=== PATIENT | male | born 1960 | race Caucasian/White ===

== ENCOUNTER → 2024-03-08 23:59 | Outpatient (BNV) | payer MEDICARE, SELFPAY | PROVIDERS: PCP Internal Medicine; Visit Provider Internal Medicine Cardiovascular Disease | DX: I21.11 ST elevation (STEMI) myocardial infarction involving right coronary artery (principal) | CPT/HCPCS: 92941; 92978; 93458; 99152 ==

== ENCOUNTER 2024-03-25 13:42 | Outpatient (AMB) | payer MEDICARE, SELFPAY ==
--- NOTE | 2024-03-25 13:44 | A.OFFVIS_ITS ---
Vital Signs 03/25/24 13:45 Height 5 ft 10 in Weight 180 lb 12.465 oz BMI 25.9 BP 124/62 Blood Pressure Location Lt brachial Position Sitting Pulse 60 Pulse Source Monitor Intake Visit Reasons: [employer]/ s/p Cardiac Cath Intake Note: [employer]/s/p Cath Room Clerk Required: No Accompanied by: Spouse Allergies aspirin [ASPIRIN] Allergy (Intermediate, Unverified 03/22/24 15:07) HIVES Medication List - Last Reconciled 03/25/24 by Houston Whitaker MD aspirin (Adult Low Dose Aspirin) 81 mg PO DAILY atorvastatin 80 mg PO BEDTIME clopidogrel 75 mg PO DAILY lisinopril 10 mg PO DAILY metoprolol succinate ER 25 mg PO DAILY tamsulosin 0.4 mg PO DAILY HPI Comments Details: [age] year gentleman who presented to [facility] in early March with chest pain and had VFib arrest. His EKGs showed inferior STEMI. He was shocked 2 times in the emergency department and then brought into the cardiac concrete laborer. In the concrete laborer on the table he had VFib arrest again. He was shocked but this time he did not regain consciousness and was intubated. He underwent cardiac catheterization which showed occluded proximal right coronary artery which was treated with drug-eluting stent. He had aspirin allergy and was treated initially with cangrelor IV and underwent aspirin desensitization in the cardiac care unit and since then has been on aspirin and Plavix. He had a good recovery and is here for clinic visit with us. He is denying any chest pain or shortness of breath. Overall has been doing well. No bleeding concerns. Blood pressure is well controlled. He is currently taking aspirin and Plavix. He is on lisinopril metoprolol and blood pressure is well controlled. He is starting cardiac rehabilitation coming Monday. [facility], [facility] Surgical History (Updated 03/25/24 @ 13:53 by Rocio Nichols CMA) Hx of cardiac cath Family History Mother Heart attack Father No problems noted. Social History (Updated 03/25/24 @ 13:55 by Rocio Nichols CMA) Alcohol intake: never Patient Tobacco Use Status: Never used Tobacco Review of Systems Const Denies chills, Denies fatigue, Denies fever(s), Denies frequent falls, Denies weakness, Denies weight gain and Denies weight loss ENT Denies dizziness Card Denies chest pain, Denies leg edema, Denies lightheadedness, Denies palpitations, Denies dyspnea, Denies dyspnea on exertion and Denies orthopnea Resp Denies cough, Denies dyspnea and Denies dyspnea on exertion GI Denies bloating and Denies change in bowel habits Musc Denies muscle weakness, Denies numbness and Denies tingling Neuro Denies dizziness, Denies frequent falls, Denies numbness, Denies tingling and Denies weakness Endo Denies fatigue and Denies palpitations Physical Exam Vital Signs: Last Vital Signs Pulse 60 03/25/24 13:45 BP 124/62 03/25/24 13:45 BMI result Body Mass Index 25.9 GENERAL APPEARANCE: in no acute distress, pleasant. NECK: no carotid bruit, no jugular venous distention. SKIN: no suspicious lesions, warm and dry. HEART: no murmurs, regular rate and rhythm. LUNGS: clear to auscultation bilaterally. ABDOMEN: soft, nontender. EXTREMITIES: no edema. PERIPHERAL PULSES: equal. NEUROLOGIC: No gross deficits, AAO X 3 Office Procedures EKG Details: Sinus rhythm 60 beats per minute, normal axis, inferior infarct with evolving changes (recent STEMI), QTC 396 milliseconds. [id number], Complete Assessment & Plan Assessment & Plan (1) ACS (acute coronary syndrome): Code(s): I24.9 - Acute ischemic heart disease, unspecified Category: Medical Plan [age] year gentleman with 1st office visit. He presented with VFib arrest and inferior ST-elevation WI and underwent primary PCI at [facility] early 03/2024. He has made a good recovery at this stage. Clinically stable. EKGs showing evolution of inferior wall WI. he is taking aspirin and Plavix at this stage. He has aspirin allergy with hives in the past and he is post desensitization. I have advised him that he should not miss aspirin again because it may lead to repeating a desensitization process. 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 He is saying that he may need biopsy of nodules. I have explained to him that he presented with acute heart attack and currently dual antiplatelet therapy can not be stopped. We will continue to monitor and whenever this plan comes up we will have a discussion about interaction of anti platelets. Aspirin obviously will not be stopped because he had desensitization performed and stopping aspirin will lead to repeat desensitization. Thank you for allowing me to participate in the care of your patient. Please feel free to contact me if you have any questions. Orders: Orders Lipid Panel Today I24.9 - Acute ischemic heart disease, unspecified Coding Level of Care Code New Pt Level 4 (32215) Diagnoses ACS (acute coronary syndrome) I24.9 CPT Codes EKG - CPT: 47096-[id number], Complete ([id number])
[2024-03-25 13:45] VITALS: BP 124/62; PULSE 60; BMI 25.9
== END 2024-03-25 14:29 | disposition home or self-care (01) ==
PROVIDERS: PCP Internal Medicine; Visit Provider Internal Medicine Cardiovascular Disease
DX: I24.9 Acute ischemic heart disease, unspecified (principal)
CPT/HCPCS: 93010; 99214

== ENCOUNTER → 2024-03-25 13:42 | Outpatient (BNVA) | payer MEDICARE, SELFPAY | PROVIDERS: PCP Internal Medicine; Visit Provider Internal Medicine Cardiovascular Disease | DX: I24.9 Acute ischemic heart disease, unspecified (principal); R94.31 Abnormal electrocardiogram [ECG] [EKG] | CPT/HCPCS: 93005; 99212 ==

== ENCOUNTER 2024-05-02 14:09 | Outpatient (REF) | payer MEDICARE, SELFPAY ==
--- OUTSIDE RECORDS SUMMARY | 2024-05-02 14:13 | XMS_ITS | Continuity of Care Document ---
Author Organization [facility] Address [address] [place] [address]- Care Team Providers Care System Developer Associate Manager Name Role Phone Gerard Ren MD Primary Care Physician Encounter [facility] NBR [id number] Date(s): 04/07/24 - 04/07/[address] [address]- Discharge Disposition: A-D/C Home Attending Physician: Isaiah Ramires MD Admitting Physician: Isaiah Ramires MD Referring Physician: Not on Staff, Referring MD Encounter Type: Disch ES Allergies, Adverse Reactions, Alerts Substance Criticality Severity Reaction Reaction Severity Status aspirin 1 Resolved Benadryl, Topical Aspirin no t indicated Active 1Patient underwent aspirin desensitization on 03/08/24 Immunizations Given and Recorded Vaccine Date Status Refusal Reason influenza virus vaccine, inactivated 03/10/24 Give n Medications aspirin 81 mg oral delayed release tablet 81 mg, By Mouth, Daily, # 30 tablet, Refills 3, Tot. Refills 3, Maintenance, 03/11/24 1:25:00 PM EST, Route to Pharmacy Electronically, [id number], Partial fill upon patient request if the prescription is for a schedule II opioid drug., 178, cm, 03/11/24 7:27:00 EST, Height, 84, kg, 03/09/24 14:31:00 EDT, Dry Weight Start Date: 03/11/24 Status: Ordered Quantity: 30.0 Unit: tablet Repeat number: 4 atorvastatin 80 mg oral tablet = 80 mg, By Mouth, Daily at bedtime, # 30 tablet, 3 Refills, Maintenance, 03/11/24 1:25:00 PM EST, Tablet, [facility], Partial fill upon patient request if the prescription is for a schedule II opioid drug., 178, cm, 03/11/24 7:27:00 EST, Height, 84, kg, 03/09/24 14:31:00 EDT, Dry Weight Start Date: 03/11/24 Status: Ordered Quantity: 30.0 Unit: tablet Repeat number: 4 CoQ10 By Mouth, Daily, 0 Refills, Maintenance, 09/17/22 6:44:00 AM EDT, Partial fill upon patient request if the prescription is for a schedule II opioid drug. Start Date: 09/17/22 Status: Ordered Repeat number: 1 Flomax 0.4 mg oral capsule 0.4 mg, 1, capsule, By Mouth, Daily, Refills 0, Maintenance, 07/29/22 10:29:00 AM EDT, Partial fill upon patient request if the prescription is for a schedule II opioid drug. Start Date: 07/29/22 Status: Ordered Repeat number: 1 lisinopril 10 mg oral tablet 10 mg, By Mouth, Daily, Refills 0, Maintenance, 03/11/24 12:42:00 PM EST, Partial fill upon patient request if the prescription is for a schedule II opioid drug. Start Date: 03/11/24 Status: Ordered Repeat number: 1 metoprolol 25 mg oral tablet, extended release 25 mg, 1, tablet, By Mouth, Daily, # 90 tablet, Refills 0, Tot. Refills 0, Maintenance, 03/11/24 1:25:00 PM EST, Route to Pharmacy Electronically, [id number], Partial fill upon patient request if the prescription is for a schedule II opioid drug., 178, cm, 03/11/24 7:27:00 EST, Height, 84, kg, 03/09/24 14:31:00 EDT, Dry Weight Start Date: 03/11/24 Status: Ordered Quantity: 90.0 Unit: tablet Repeat number: 1 Plavix 75 mg oral tablet 75 mg, By Mouth, Daily, # 30 tablet, Refills 3, Tot. Refills 3, Maintenance, 03/11/24 1:25:00 PM EST, Route to Pharmacy Electronically, [facility], Partial fill upon patient request if the prescription is for a schedule II opioid drug., 178, cm, 03/11/24 7:27:00 EST, Height, 84, kg, 03/09/24 14:31:00 EDT, Dry Weight Start Date: 03/11/24 Status: Ordered Quantity: 30.0 Unit: tablet Repeat number: 4 Vital Signs Most recent to oldest [Reference Range]: 1 2 Height 179 cm (04/07/24 5:10 PM) 179 cm (04/07/24 3:08 PM) Weight 82.7 kg (04/07/24 5:10 PM) 82.7 kg (04/07/24 3:08 PM) Oxygen Saturation [94-100 %] 98 % (04/07/24 5:10 PM) 100 % (04/07/24 3:08 PM) Pulse Rate [55-90 bpm] 62 bpm (04/07/24 5:10 PM) 57 bpm (04/07/24 3:08 PM) Blood Pressure [90-138/55-84 mm Hg] 118/ 68mm Hg (04/07/24 5:10 PM) 126/89mm Hg (04/07/24 3:08 PM) Respiratory Rate [16-30 br/min] 18 br/mi n (04/07/24 5:10 PM) 16 br/min (04/07/24 3:08 PM) Temperature [96.8-100.4 DegF] 97.8 DegF (04/07/24 3:08 PM) Mode of Delivery (Oxygen) Room air (04/07/24 5:10 PM) Room air (04/07/24 3:08 PM) Blood pressure sites Arm, right (04/07/24 5:10 PM) Arm, left (04/07/24 3:08 PM) Temperature Route Temporal (04/07/24 3:08 PM) Dry Weight 82.7 kg (04/07/24 5:10 PM) 82.7 kg (04/07/24 3:08 PM) Weight Obtained Via Standing scale (04/07/24 3:08 PM) Dry Weight Obtained Via Standing scale (04/07/24 3:08 PM) Social History Social History Type Response Smoking Status Never (less than 100 in lifetime) entered on: 03/08/24 Sex Sex Representation Male (finding) Implantable Device List Procedure Provider Procedure Date Device Type Site Repair Hernia Inguinal Lapar oscopic Bila Nirav Fleming MD 10/05/22 Unknown Groin Device Identifier Serial Number Lot or Batch Number Manufacturing Date Expiration Date Distinct Identification Code MRI Safety Implantable Status Assigning Authority Unknown Unknown [id number] Unknown 03/04/27 Unknown Unknown Active Unknown Unknown Unknown [id number] Unknown 03/04/27 Unknown Unknown Active Unknown Note * Isaiah Ramires MD: PERFORM, SIGN, VERIFY Event Display: Patient Education Handout Authored Date: * Isaiah Ramires MD: PERFORM Event Display: Patient Education Leaflets Authored Date: Hematoma ?? [id number] Hematoma A hematoma is a collection of blood trapped outside of a blood vessel. It's what we think of as a bruise or a contusion. It's often seen under the skin as a black and blue spot on your arm or leg, ora bump on your head after an injury. It can be almost anywhere on or in your body. It can also occur in an internal organ. This can be more serious. A hematoma is caused by an injury with damage to small blood vessels. This causes blood to leak into the tissues. Blood forms a pocket under the skin that swells and looks like a purplish patch. Hematomas sometimes form under the skin from bleeding during childbirth and can be particularly serious.Another serious form of hematoma forms after a fall on the head, called a subdural hematoma. Gradually the blood in the hematoma is absorbed back into the body. The swelling and pain of the hematoma will go away. This takes from??1 to??4 weeks, depending on the size of the hematoma. The skinover the hematoma may turn bluish then brown and yellow as the blood is dissolved and absorbed. Usually, this only takes a couple of weeks but can last months. Home care ??? Limit motion of the joints near the hematoma. If the hematoma is large and painful, avoid sports and other vigorous physical activity until the swelling and pain goes away. ??? Apply anice pack over the injured area for 20 minutes every 1 to 2 hours the first day. Continue with ice packs 3 to 4 times a day for the next??2 days. To make an ice pack, put ice cubes in a plastic bag that seals at the top. Wrap the bag in a thin towel or cloth. Don???t put ice or an ice pack directly on the skin. Continue the use of ice packs to ease pain and swelling as needed. ??? Take acetaminophen for pain relief, unless you were given a different pain medicine to use.??Talk with your providerbefore using this medicine if you: o Have chronic liver or kidney disease o Have??had a stomach ulcer or??digestive tract??bleeding o Are taking blood-thinner medicines. ?? Follow-up care Follow up with your??healthcare provider,??or as advised.??If X-rays or a CT scan were done, you'llbe told if there is a change in the reading, especially if it affects treatment. ?? When to get medical advice Call your healthcare provider right away if any of the following occur: ??? Redness around the hematoma ??? Increase in pain or warmth in the hematoma ??? Increase in size of the hematoma ??? Fever of 100.4??F (38??C) or higher, or as directed by your provider ??? If the hematoma is on the arm or leg, watch for: o More swelling or pain in the extremity o Numbness or tingling or blue color of the hand or foot ?? Last Reviewed Date: 2021 ?? [id number] The [employer]. All rights reserved. This information is not intended as a substitute for professional medical care. Always follow your healthcare professional's instructions. ?? Patient Care team information Care Team Personnel Name: Sridevi Aguilar RN Position: [facility] RN Member Role: Primary Care Nurse Name: Jewel Hogan RN Position: S RN Member Role: Primary Care Nurse Name: Gerard Ren MD Position: [facility] Outreach Member Role: PCP Address: [address] [place] [id number] Telecom: Care Team Related Persons Name: TERE MORATAYA Name: JACKSON MORENO Insurance Providers Guarantor name: GAVINO WASHINGTON Health Plan Information #: 1 Payer: MEDICARE PART B OUTPT Member Number: [id number] Policy Number: NA Group Number: NA Health Plan Information #: 2 Payer: MEDICARE PART B OUTPT Member Number: [id number] Policy Number: NA Group Number: NA
[2024-05-02 16:15] LABS: Cholesterol 121 mg/dL (<200); HDL Cholesterol 44 mg/dL (>40); LDL Cholesterol Calculated 59 mg/dL (<100); Triglycerides 91 mg/dL (<150)
== END 2024-05-02 14:10 | disposition home or self-care (01) ==
LOC: HO.LAB 14:09
PROVIDERS: PCP Internal Medicine; Visit Provider Internal Medicine Cardiovascular Disease
DX: I24.9 Acute ischemic heart disease, unspecified (principal)
CPT/HCPCS: 36415; 80061

== ENCOUNTER 2024-06-25 13:56 | Outpatient (AMB) | payer MEDICARE, SELFPAY ==
[2024-06-25 14:02] VITALS: BP 132/70; PULSE 62; BMI 26.8
--- NOTE | 2024-06-25 14:02 | MHC.OFFVIS ---
Vital Signs 06/25/24 14:02 Height 5 ft 10 in Weight 186 lb 8.177 oz BMI 26.8 BP 132/70 Blood Pressure Location Lt brachial Position Sitting Pulse 62 Pulse Source Pulse Oximeter Intake Visit Reasons: 3mth f/up Dba Required: No Accompanied by: Self / Same As Patient Allergies aspirin [ASPIRIN] Allergy (Intermediate, Unverified 03/22/24 15:07) HIVES Medication List - Last Reconciled 06/25/24 by George Blevins NP aspirin (Adult Low Dose Aspirin) 81 mg PO DAILY 90 days atorvastatin 80 mg PO BEDTIME 90 days blood pressure monitor (Blood Pressure Kit) As directed clopidogrel 75 mg PO DAILY 90 days lisinopril 10 mg PO DAILY 90 days metoprolol succinate ER 25 mg PO DAILY 90 days tamsulosin 0.4 mg PO DAILY 90 days HPI Comments Details: This is a 63-year-old male patient presenting for a follow-up visit. He has a history of VFib arrest and STEMI in March, during which he was shocked twice in the emergency room and subsequently underwent cardiac catheterization. During the procedure, the patient had another VFib arrest. The catheterization revealed 100% occlusion of the proximal RCA, which was treated with a drug eluting stent. Today, the patient reports feeling overall well and denies any exertional chest pain, shortness of breath, palpitations, dizziness, fatigue, orthopnea, PND, leg edema, presyncope, or syncope. He states that he has been compliant with his prescribed medications. However, he reports discontinuing cardiac rehabilitation due to a negative experience with the staff the. He states that he has continued to engage in regular exercise at a local senior center. [facility] Surgical History (Updated 06/25/24 @ 14:08 by Josephine Kwan CMA) Hernia Hx of cardiac cath Family History Mother Heart attack Father No problems noted. Social History Alcohol intake: never Patient Tobacco Use Status: Never used Tobacco Review of Systems Const Denies chills, Denies fatigue, Denies fever(s), Denies weight gain and Denies weight loss ENT Denies dizziness Card Denies chest pain, Denies leg edema, Denies lightheadedness, Denies palpitations, Denies dyspnea on exertion, Denies orthopnea and Denies other Resp Denies cough and Denies dyspnea on exertion GI Denies hematochezia and Denies change in stool character Musc Denies abnormal gait, Denies muscle weakness, Denies numbness, Denies radiating pain into limb and Denies tingling Neuro Denies abnormal gait, Denies dizziness, Denies numbness and Denies tingling Endo Denies fatigue and Denies palpitations Physical Exam Vital Signs: Last Vital Signs Pulse 62 06/25/24 14:02 BP 132/70 06/25/24 14:02 BMI result Body Mass Index 26.8 Const General: cooperative, healthy appearing, comfortable and no acute distress Orientation/consciousness: patient oriented x3 HEENT Head: Yes normal to inspection Neck Neck: Yes normal visual inspection, Yes trachea midline and Yes supple Chest Chest palpation & inspection: normal inspection of the chest Resp Effort & Inspection: normal respiratory effort Auscultation: clear to auscultation bilaterally, no crackles, no rales, no rhonchi and no wheezes Cardio Jugular venous distension: no JVD Palpation: normal PMI Rate: regular rate Rhythm: regular rhythm Heart sounds: S1 normal heart sound present, S2 normal heart sound present, no click, no gallops, no murmurs and no rubs Peripheral pulses: Peripheral pulses 2+ throughout GI Inspection: Yes normal to inspection Palpation (GI): Soft to palpation Auscultation: normal bowel sounds Skin General skin exam: no rashes or lesions noted Neuro General: patient oriented x3 Extrem General: Yes normal to inspection, No no pedal edema and No calf tenderness Psych Appearance: grossly normal Mental Status: mental status grossly normal Speech and movement: Normal speech and movement present Assessment & Plan Assessment & Plan (1) ACS (acute coronary syndrome): Code(s): I24.9 - Acute ischemic heart disease, unspecified Category: Medical Plan: Continue with the current regimen of dual antiplatelet therapy with aspirin and Plavix. Emphasized the importance of not missing the aspirin dose, particularly due to his prior desensitization procedure. Continue high-dose statin therapy, most recent LDL was 59. Goal is to maintain LDL less than 70. The patient reports that in the past someone had told him about calcified valves and dilated ascending aorta. To assess for any valvular or wall motion abnormalities, we will get an echocardiogram. Advised patient to continue with heart healthy diet, regular physical activity, and consistent medication adherence. Follow-up in 6 months. In the interim, patient will contact the office with any concerns or changes in symptoms. This note was generated using voice recognition software. While every effort has been made to ensure accuracy and proper precision instrument maker and repairer, there may be occasional errors that could affect the content or meaning of the described symptoms. Orders: Orders CA echo transthoracic complete 4 Months I24.9 - Acute ischemic heart disease, unspecified Coding Level of Care Code Est Pt Level 4 (45962) Diagnoses ACS (acute coronary syndrome) I24.9 Time Spent (min) 31 Comment Time spent in reviewing the chart, test results, assessment, counseling and documentation.
--- OUTSIDE RECORDS SUMMARY | 2024-06-25 14:58 | XMS_ITS | Continuity of Care Document ---
Author Organization [facility] ter Address [address] [place] [address]- Care Team Providers Care Fisher Sponge Hooking Name Role Phone Gerard Ren MD Primary Care Physician Encounter [facility] AC[facility] R [id number] Date(s): 04/01/24 - 06/10/[address] [address]- Encounter Diagnosis ST elevation (STEMI) myocardial infarction of unspecified site(Final) - Atherosclerotic heart disease of [place] coronary artery without angina pectoris (Final) - Presence of coronary angioplasty implant and graft(Final) - Discharge Disposition: A-D/C Home Attending Physician: Kyra Dumont MD Admitting Physician: Kyra Dumont MD Referring Physician: Kyra Dumont MD Encounter Type: Disch Recurring OP Allergies, Adverse Reactions, Alerts Substance Criticality Severity [...] 1:25:00 PM EST, Route to Pharmacy Electronically, [id number], Partial fill upon patient request if the [...] Refills, Maintenance, 03/11/24 1:25:00 PM EST, Tablet, [facility], Partial fill upon patient request [...] 1:25:00 PM EST, Route to Pharmacy Electronically, [facility], Partial fill upon patient request [...] 1:25:00 PM EST, Route to Pharmacy Electronically, [facility], Partial fill upon patient request if the prescription is for a schedule II opioid drug., 178, cm, 03/11/24 7:27:00 EST, Height, 84, kg, 03/09/24 14:31:00 EDT, Dry Weight Start Date: 03/11/24 Status: Ordered Quantity: 30.0 Unit: tablet Repeat number: 4 Social History Social History Type Response Smoking Status Never (less than 100 in lifetime) entered on: 03/08/24 Sex Sex Representation Male (finding) Implantable Device List Procedure Provider Procedure Date Device Type Site Repair Hernia Inguinal Lapar oscopic Esme Fleming MD, Nirav Villalta 10/05/22 Unknown Groin Device Identifier Serial Number Lot or Batch Number Manufacturing Date Expiration Date Distinct Identification Code MRI Safety Implantable Status Assigning Authority Unknown Unknown [id number] Unknown 03/04/27 Unknown Unknown Active Unknown Unknown Unknown [id number] Unknown 03/04/27 Unknown Unknown Active Unknown Note * Event Display: Cardiac Rehab Telemetry Report Authored Date: * Event Display: Cardiac Rehab Telemetry Report Authored Date: * Event Display: Cardiac Rehab Telemetry Report Authored Date: Patient Care team information Care Team Personnel Name: Sridevi Aguilar RN Position: [facility] RN Member Role: Primary Care Nurse Name: Jewel Hogan RN Position: S RN Member Role: Primary Care Nurse Name: Gerard Ren MD Position: [facility] Outreach Member Role: PCP Address: [address] [place] [address] Telecom: Care Team Related Persons Name: KYRA MORATAYA Name: JACKSON MORENO Insurance Providers Guarantor name: GAVINO PADMINI [employer] Plan Information #: 1 Payer: MEDICARE PART B OUTPT Member Number: [id number] Policy Number: NA Group Number: NA Health Plan Information #: 2 Payer: MEDICARE PART B OUTPT Member Number: [id number] Policy Number: NA Group Number: NA
== END 2024-06-25 14:42 | disposition home or self-care (01) ==
PROVIDERS: PCP Internal Medicine
DX: I24.9 Acute ischemic heart disease, unspecified (principal)
CPT/HCPCS: 99214

== ENCOUNTER → 2024-06-25 13:56 | Outpatient (BNVA) | payer MEDICARE, SELFPAY | PROVIDERS: PCP Internal Medicine | DX: I24.9 Acute ischemic heart disease, unspecified (principal) | CPT/HCPCS: 99212 ==

== ENCOUNTER → 2024-10-23 11:02 | Outpatient (REF) | payer MEDICARE, SELFPAY ==
--- NOTE | 2024-10-23 11:04 | CA_ITS ---
Transthoracic Echocardiogram Patient (Last, First, Middle): Jayme Pham, Gender: Male Date of : 1960 Age: 64 Procedure Date: 10/23/2024 Procedure Type: Transthoracic Echocardiogram Location: OP Height: 177.8 cm Weight: 84.37 kg BSA: 2.02 m2 Heart Rate: 54 bpm BP: 132 / 70 mmHg Field Agronomist: KIRBY Referring MD: George Blevins NP Concrete Bucket Hooker: Gold Diehl MD Symptoms: I24.9 - Acute ischemic heart disease, unspecified Study Quality: Adequate ECG Rhythm: Bradycardia Conclusions: - 1. Normal LV ejection fraction of 60 65% with grade 1 diastolic dysfunction with underlying regional wall motion abnormality consistent with coronary artery disease 2. Cardiac valvular with Dopplers within normal limits 3. Mildly dilated ascending aorta 4. Normal RV systolic pressure 5. No pericardial effusion Findings Left Ventricle Normal left ventricular size, thickness, and systolic function. The visually estimated ejection fraction is between 60-65%. Spectral Doppler is indicative of an impaired relaxation filling pattern. E/E prime ratio is <8, consistent with normal filling pressures. Evidence suggests grade I (mild) diastolic dysfunction. Wall Motion Rest Echo Findings The basal inferior and mid inferoseptal segments are hypokinetic. The basal inferoseptal segment is akinetic. All other scored wall segments showed normal motion. Right Ventricle Normal right ventricular cavity size and systolic function. Atria Both atria are normal in size. There is no evidence of interatrial shunt. Aortic Valve Normal aortic valve structure and function. There is no aortic valve stenosis. There is no aortic valve regurgitation. Mitral Valve Normal mitral valve structure and function. There is mild mitral annular calcification. There is trace mitral valve regurgitation. There is no mitral valve stenosis. Pulmonic Valve The pulmonic valve was not well visualized. Tricuspid Valve Likely normal tricuspid valve structure and function. There is trace tricuspid valve regurgitation. The right ventricular systolic pressure is normal. The right ventricular systolic pressure is 18 mmHg. Normal right atrial pressure. There is no evidence of pulmonary hypertension. Great Vessels The pulmonary artery was not well visualized. There is mild dilatation of the ascending aorta measuring 3.80 cm. Small plaque is seen in the sino tubular ridge. Venous The inferior vena cava is normal in size and collapses greater than 50% with inspiration. Pericardium/Pleural There is no evidence of pericardial effusion. Prior Study Comparison No prior study available for comparison. Measurements 2D Linear Measurements IVSd: 0.99 0.6-0.9/0.6-1.0 cm LVIDd: 5.06 3.9-5.3/4.2-5.9 cm LVIDd Index: 2.50 2.4-3.2/2.2-3.1 cm/m2 LVIDs: 3.05 2.0-3.6 cm LVPWd: 0.68 0.7-1.1 cm LA Diam: 3.80 2.7-3.8/3.0-4.0 cm LAIDs Index: 1.88 1.5-2.3 cm/m2 LV Mass: 181.43 67-162/88-224 g LV Mass Index: 89.82 43-95/49-115 g/m2 LVOT Diam: 2.20 3.0+(-)1.3 cm 2D Systolic Function EF 4C: 59.90 >55% EF 2C: 61.00 >55% EF BiP: 61.30 >55% Mitral Valve MV Pk E: 0.73 MV PK A: 0.63 MV Decel Time: 264.00 E/A: 1.20 E'Lateral: 9.90 E'Medial: 5.55 E/E' Med: 13.20 E/E' Lat: 7.40 PHT: 77.00 MVA PHT: 2.86 Decel Harris: 2.78 Aortic Valve AoV Pk Frantz: 1.31 AoV Pk Grad: 7.00 ELIJAH: 3.48 LVOT LVOT Pk Frantz: 1.21 LVOT Mn Frantz: 0.81 LVOT VTI: 0.25 LVOT Pk Grad: 6.00 LVOT Mn Grad: 3.00 LVOT Diam: 2.20 LVOT Area: 3.80 Diastolic Function MV Pk E: 0.73 MV Pk A: 0.63 E/A: 1.20 E'Medial: 5.55 E/E' Med: 13.20 E' Laterial: 9.90 E/E' Lat: 7.40 Right Ventricle TAPSE (mm): 23.90 TVS' Frantz: 12.30 Tricuspid Valve TR Pk Frantz: 1.96 TR Pk Grad: 15.00 RA Press: 3.00 RVSP: 18.00 Great Vessels Aorta Sinus of Valsalva: 3.30 2.0-3.5 cm Ao Asc: 3.80 2.1-3.4 cm Pulmonary Veins Pulm Vein S/D 1.10 Pulmonary Valve PV Pk Frantz: 0.93 Peak PV Grad: 3.00 Updated in Other Vendor System with Status of Final Gold iDehl MD electronically signed on 10/23/2024 1:27:01 PM with status of Final
== END ==
LOC: HO.CARD 11:02
PROVIDERS: PCP Internal Medicine
DX: I24.9 Acute ischemic heart disease, unspecified (principal)
CPT/HCPCS: 93306

== ENCOUNTER → 2024-10-23 11:04 | Outpatient (BNV) | payer MEDICARE, SELFPAY | PROVIDERS: PCP Internal Medicine; Visit Provider Internal Medicine Cardiovascular Disease | DX: I24.9 Acute ischemic heart disease, unspecified (principal) | CPT/HCPCS: 93306 ==

== ENCOUNTER 2024-12-25 13:26 | Outpatient (AMB) | payer MEDICARE, SELFPAY ==
--- NOTE | 2024-12-25 13:39 | MHC.OFFVIS ---
Vital Signs 12/25/24 13:41 Height 5 ft 10 in Weight 178 lb 9.191 oz BMI 25.6 BP 110/64 Blood Pressure Location Lt brachial Position Sitting Pulse 47 L Pulse Source Monitor Intake Visit Reasons: 6m follow up Intake Note: 6 mth f/up Protozoology Teacher Required: No Accompanied by: Spouse Allergies aspirin (ASPIRIN) Allergy (Intermediate, Unverified 03/22/24 15:07) HIVES Medication List - Last Reconciled 12/25/24 by Houston Whitaker MD aspirin (Adult Low Dose Aspirin) 81 mg PO DAILY 90 days atorvastatin 80 mg PO BEDTIME 90 days blood pressure monitor (Blood Pressure Kit) As directed clopidogrel 75 mg PO DAILY 90 days lisinopril 10 mg PO DAILY 90 days metoprolol succinate ER 25 mg PO DAILY tamsulosin 0.4 mg PO DAILY 90 days HPI Comments Details: [age] year gentleman who presented to [facility] in early March with chest pain and had VFib arrest. His EKGs showed inferior STEMI. He was shocked 2 times in the emergency department and then brought into the cardiac labor contract analyst. In the labor contract analyst on the table he had VFib arrest again. He was shocked but this time he did not regain consciousness and was intubated. He underwent cardiac catheterization which showed occluded proximal right coronary artery which was treated with drug-eluting stent. He had aspirin allergy and was treated initially with cangrelor IV and underwent aspirin desensitization in the cardiac care unit and since then has been on aspirin and Plavix. He had a good recovery and is here for clinic visit with us. He is denying any chest pain or shortness of breath. Overall has been doing well. No bleeding concerns. Blood pressure is well controlled. He is currently taking aspirin and Plavix. He is on lisinopril metoprolol and blood pressure is well controlled. 12/25/2024: He is here for follow-up. He is saying that few weeks ago he was working and taking some dirt when he started feeling central pressure-like sensation. He said since then he had few episodes of same sensation mostly after eating and randomly. He continues to exercise and go to cardiac rehabilitation and does not get any significant symptoms there. PFSH Surgical History Hernia Hx of cardiac cath Family History Mother Heart attack Father No problems noted. Social History Alcohol intake: never Patient Tobacco Use Status: Never used Tobacco Review of Systems Const Denies chills, Denies fatigue, Denies fever(s), Denies frequent falls, Denies weakness, Denies weight gain and Denies weight loss ENT Denies dizziness Card Denies chest pain, Denies leg edema, Denies lightheadedness, Denies palpitations, Denies dyspnea and Denies dyspnea on exertion Resp Denies cough, Denies dyspnea and Denies dyspnea on exertion GI Denies hematochezia Musc Denies abnormal gait, Denies muscle weakness, Denies numbness, Denies radiating pain into limb and Denies tingling Neuro Denies abnormal gait, Denies dizziness, Denies frequent falls, Denies numbness, Denies tingling and Denies weakness Endo Denies fatigue and Denies palpitations Physical Exam Vital Signs: Last Vital Signs Pulse 47 L 12/25/24 13:41 BP 110/64 12/25/24 13:41 BMI result Body Mass Index 25.6 GENERAL APPEARANCE: in no acute distress, pleasant. NECK: no carotid bruit, no jugular venous distention. SKIN: no suspicious lesions, warm and dry. HEART: no murmurs, regular rate and rhythm. Bradycardic. LUNGS: clear to auscultation bilaterally. ABDOMEN: soft, nontender. EXTREMITIES: no edema. PERIPHERAL PULSES: equal. NEUROLOGIC: No gross deficits, AAO X 3 Office Procedures EKG Details: Sinus bradycardia 47 beats per minute, otherwise normal EKG, QTC 361 milliseconds. [id number], Complete Assessment & Plan Assessment & Plan (1) Chest pain: Code(s): R07.9 - Chest pain, unspecified Category: Medical Plan Pleasant 64-year-old gentleman who is here for follow-up. 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 At that time he did not ever really significant coronary disease in other blood vessels. He also had dyspnea as the presentation sent did not have any chest discomfort. Recently started having chest discomfort during exercise which was 1 episode and then he had random episodes of chest pressure after eating and without exercise. He continues to be active and has no significant exertional symptoms. Given known history of coronary disease, we discussed about doing an exercise stress test and we will do an exercise MIBI on him. He otherwise clinically stable and we will continue the same medications for now. Thank you for allowing me to participate in the care of your patient. Please feel free to contact me if you have any questions. Orders: Orders CA stress test Today R07.9 - Chest pain, unspecified NM cardiolite stress test Today R07.9 - Chest pain, unspecified Coding Level of Care Code Est Pt Level 4 (17759) Diagnoses Chest pain R07.9 CPT Codes EKG - CPT: 61672-[id number], Complete ([id number])
[2024-12-25 13:41] VITALS: BP 110/64; PULSE 47; BMI 25.6
--- OUTSIDE RECORDS SUMMARY | 2024-12-25 14:21 | XMS_ITS | Encounter Summary ---
Author Organization [facility] Address [address] [place] [address] Phone Care Team Providers Care Aircraft Engine Mechanic Supervisor Name Role Phone Lauriealexander Liza Beatris TRANSITION SPECIALIST Primary Care Provider Merritt Trevino MD Unavailable Gilda Ayoub CHANNEL LIP WETTER Primary Care Provider [phone] Gerard Ren MD Primary Care Provider [phone] Gerard Ren MD Unavailable Encounter Details Date Type Department Care Team (Late st Contact Info) Description 07/11/2022 Procedure Pass [facility], Ct Scan - [address] [address] Social History Tobacco Use Types Packs/Day Years Used Date Smoking Tobacco: Former Cigarettes 1.5 20 0 06/25/1968 - 06/25/1982 Smokeless Tobacco: Never Alcohol Use Standard Drinks/Week Comments No 0 (1 standard drink = 0.6 oz pur e alcohol) Child or Family Care Answer Date Record ed Do you have problems with on e of the following making it difficult for you to work, study, or receive health care? No 02/08/2022 Education Answer Date Recorded Are you interested in help w ith more adult education (for example, completing high school, GED, job training, learning the Ivorian language, technical skills, or developing parenting skills)? No 02/08/2022 Food Answer Date Recorded Within the past 6 months we worried whether our food would run out before we got money to buy more. Never True 02/08/2022 Within the past 6 months the food we bought just didn't last and we didn't have enough money to get more. Never True Residential Stability Answer Date Recor ded What is your housing situation today? I have gisselle donato 02/08/2022 How many times have you move d in the past 12 months? Zero (I did not move) 02/08/2022 Paying for Meds Answer Date Recorded Do you have trouble paying for medicines? No 02/08/2022 Paying Utility Bills Answer Date Record ed Do you have trouble paying your heating or elect ricity bill? No 02/08/2022 Transportation Answer Date Recorded Has the lack of transportati on kept you from medical appointments or from getting medications? No 02/08/2022 Unemployment Answer Date Recorded Are you currently unemployed or working on a part-time or temporary basis, and looking for work? No 02/08/2022 Sex and Gender Information Value Date Recorded Sex Assigned at Male 02/23/2022 7:43 PM EDT Legal Sex Male 9:55 AM EDT Gender Identity Male 02/23/2022 7:43 PM EDT Sexual Orientation Not on file Occupation Industry Job Start Date Job End Date disabled Not on file Not on file Not on file documented as of this encounter Plan of Treatment Upcoming Encounters Date Type Department Care Team (Late st Contact Info) Description 01/01/2025 11:00 AM EDT Office Visit [facility] [address] [place] [address] Gerard Ren MD [address] [place] [address] documented as of this encounter Visit Diagnoses Not on filedocumented in this encounter Additional Health Concerns Assessment Noted Time PHQ-2 Depression Total Score: 0 02/09/20 22 9:04 AM EDT documented as of this encounter Care Teams Aircraft Engine Mechanic Supervisor Relationship Specialty Start Date End Date Liza Colvin CNP [address] [place] [address] [email or web address] PCP - General Internal Medicine 08/07/20 10/23/22 Gilda Ayoub NP [address] [place] [address] [email or web address] PCP - General Family Medicine 10/24/22 07/09/23 Gerard Ren MD [address] [place] [address] PCP - General Internal Medicine 07/10/23 Merritt Trevino MD [address] [place] [address] Insurance Assigned Provider 08/12/23 08/11/24 Gerard Ren MD [address] [place] [id number] Insurance Assigned Provider 08/11/24 11/16/24 documented as of this encounter Additional Source Comments The information contained in this document represents components of the legal health record. It is not the complete legal health record.[facility]
--- OUTSIDE RECORDS SUMMARY | 2024-12-25 14:22 | XMS_ITS | Patient Health Record ---
Author Organization [facility] Address [address] [place] [address] Care Team Providers Care Hand Candle Molder Name Role Phone REJI HIRSCH Primary Care Provider Francisco Posada Jr Unavailable Dale CASTILLO, Divya Unavailable Unavailable Reason For Referral No Information Medications Medication SIG (Take, Route, Frequency, Duration) Notes Start Date End Date Status hydroCHLOROthiazide 12.5 MG 1 tablet in the morning Orally Once a day Active Colyte with Flavor Packs 240 GM As direc andrey Orally Over the specified time. for 1 day(s) 08/18/2016 Active Flomax 0.4 MG 1 capsule Orally Onc e a day Active Immunizations Vaccine Route Administration Date Status Comme nts Influenza Unknown 06/09/2016 Administered Problems Problem Type SNOMED Code ICD Code Onset Dates Problem Status W/U Status Risk Notes Problem 962685503 Colon cancer screening (Z12.11) Active confirmed Problem 819290050 Long-term curren t use of high risk medication other than anticoagulant (Z79.899) Active confirmed Plan Of Treatment Future Test Test Name Order Date COLONOSCOPY 08/18/2016 Insurance Providers Payer Name Payer Address Payer Phone Subscriber Number Group Number Insured Name Patient Relationship to Insured Coverage Start Date Coverage End Date MEDICARE OF [employer] [place] [address] [place] [address] [phone] [id number] GAVINO [place] Self - patient is the insured Medical (General) History Medical History History ICD Code hypertension discectomy/ back 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
== END 2024-12-25 14:40 | disposition home or self-care (01) ==
LOC: HO.HCS 13:27
PROVIDERS: PCP Internal Medicine; Visit Provider Internal Medicine Cardiovascular Disease
DX: R07.9 Chest pain, unspecified (principal)
CPT/HCPCS: 93010; 99214

== ENCOUNTER → 2024-12-25 13:26 | Outpatient (BNVA) | payer MEDICARE, SELFPAY | PROVIDERS: PCP Internal Medicine; Visit Provider Internal Medicine Cardiovascular Disease | DX: R07.9 Chest pain, unspecified (principal); R00.1 Bradycardia, unspecified; Z98.890 Other specified postprocedural states | CPT/HCPCS: 93005; 99212 ==

== ENCOUNTER → 2025-02-24 09:42 | Outpatient (REF) | payer MEDICARE, SELFPAY ==
--- NOTE | ~2025-02-24 | NM_ITS ---
EXERCISE MYOCARDIAL PERFUSION STUDY INDICATION: Chest pain to evaluate for myocardial ischemia TECHNIQUE: The patient was brought in for an exercise perfusion study on 02/24/2025. Patient performed exercise as per Magnus protocol and was injected 30 mCi of sestamibi once target heart rate was achieved. Images were obtained using the SPECT gamma camera interlaced with the gating device. Images were obtained in supine position. Resting perfusion study was performed on 02/25/2025. Patient was administered 30 mCi of sestamibi intravenously at rest. Images were then obtained in supine position. Images obtained without without CT attenuation. Total DLP 60 mGy-cm. Images were processed with the software and compared side to side in short axis, horizontal long axis and vertical long axis views. FINDINGS: Raw images were reviewed The stress perfusion study showed nonattenuated images show mildly reduced uptake in the mid and basal inferior wall of the LV myocardium. Remainder of the LV myocardium is normally perfused. Attenuated corrected images show mildly reduced uptake in the apex of the LV. The gated study shows normal LV systolic function with calculated LVEF of 63%. LV cavity is mildly dilated in size. The gated study shows normal systolic wall thickening and contraction of segments. Resting study shows no change in perfusion pattern compared to stress perfusion study. Gating at rest reveals normal systolic wall motion with ejection fraction at 58%. The findings are consistent with normal myocardial perfusion. NM/NM cardiolite stress test IMPRESSION: 1. Myocardial perfusion imaging study shows normal perfusion. 2. Gated LVEF is 63%. 3. Transient ischemic dilatation not present. EKG revealed negative for ischemia. Electronically signed by: Gold Diehl MD 02/26/2025 04:07 PM EDT
--- NOTE | 2025-02-24 09:48 | CA_ITS ---
Acquisition Time: 2025-02-24 09:51:36 Total Exercise Time: 00:08:10 Test Indications: cp Medications: see h&p Protocol: MUNA Max HR: 137 BPM 88% of Pred: 154 BPM Max BP: 162/74 mmHG Max Work Load: 10.1 METS Exercise stress test with exercise 8mins 10 secs of Muna Protocol, achieving 87% MPHR, without any reported symptoms of CP or SOB, with isolated PVCs, with normotensive response to exercise. Without any EKG changes meeting criteria for ischemia. In recovery, pt continued to feel well. Nuclear images pending. Test reviewed with Dr. Diehl. Referred By: Houston Whitaker Electronically Signed By: George Blevins
--- OUTSIDE RECORDS SUMMARY | 2025-02-24 10:49 | XMS_ITS | Patient Health Record ---
Author Organization [facility] Address [address] [place] [address] Care Team Providers Care Sales And Marketing Engineer Name Role Phone REJI HIRSCH Primary Care Provider Francisco Posada Jr Unavailable Dale CASTILLO, Divya Unavailable Unavailable Reason For Referral No Information Medications Medication SIG (Take, Route, Frequency, Duration) Notes Start Date End Date Status hydroCHLOROthiazide 12.5 MG 1 tablet in the morning Orally Once a day Active Colyte with Flavor Packs 240 GM As direc andery Orally Over the specified time.; Duration: 1 day(s) 08/18/2016 Active Flomax 0.4 MG 1 capsule Orally Onc e a day Active Immunizations Vaccine Route Administration Date Status Comme nts Influenza Unknown 06/09/2016 Administered Problems Problem Type SNOMED Code ICD Code Onset Dates Problem Status W/U Status Risk Notes Problem Colon cancer screening (329102541) Colon cancer screening (Z12.11) Active confirmed Problem Long-term current use of drug therapy (424023403) Long-term current use of high risk medication other than anticoagulant (Z79.899) Active confirmed Plan Of Treatment Future Test Test Name Order Date COLONOSCOPY 08/18/2016 Insurance Providers Payer Name Payer Address Payer Phone Subscriber Number Group Number Insured Name Patient Relationship to Insured Coverage Start Date Coverage End Date MEDICARE OF [employer] [address] [place] [address] [phone] [id number] GAVINO [place] Self - patient is the insured Medical (General) History Medical History History ICD Code hypertension discectomy/ back 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
--- OUTSIDE RECORDS SUMMARY | 2025-02-24 10:49 | XMS_ITS | Encounter Summary ---
Author Organization [facility] Address [address] [place] [address] Phone Care Team Providers Care Juvenile Officer Name Role Phone Merritt Trevino MD Unavailable [phone] Gerard Ren MD Primary Care Provider [phone] Gerard Ren MD Unavailable Encounter Details Date Type Department Care Team (Late st Contact Info) Description 12/27/2023 Procedure Pass [facility], Ct Scan - [facility] [address] [place] [address] Social History Tobacco Use Types Packs/Day Years Used Date Smoking Tobacco: Former Cigarettes 1.5 14 0 06/25/1968 - 06/25/1982 Smokeless Tobacco: Never Alcohol Use Standard Drinks/Week Comments No 0 (1 standard drink = 0.6 oz pur e alcohol) Child or Family Care Answer Date Record ed Do you have problems with on e of the following making it difficult for you to work, study, or receive health care? No 12/27/2023 Education Answer Date Recorded Are you interested in help w ith more adult education (for example, completing high school, GED, job training, learning the Latvian language, technical skills, or developing parenting skills)? No 12/27/2023 Are you concerned about learning? Not on file 12/27/2023 No 12/27/2023 Yes 12/27/2023 Food Answer Date Recorded Within the past 6 months we worried whether our food would run out before we got money to buy more. Never True 12/27/2023 Within the past 6 months the food we bought just didn't last and we didn't have enough money to get more. Never True Residential Stability Answer Date Recor ded What is your housing situation today? I have gisselle donato 12/27/2023 How many times have you move d in the past 12 months? Zero (I did not move) 12/27/2023 Paying for Meds Answer Date Recorded Do you have trouble paying for medicines? No 12/27/2023 Paying Utility Bills Answer Date Record ed Do you have trouble paying your heating or elect ricity bill? No 12/27/2023 Transportation Answer Date Recorded Has the lack of transportati on kept you from medical appointments or from getting medications? No 12/27/2023 Unemployment Answer Date Recorded Are you currently unemployed or working on a part-time or temporary basis, and looking for work? No 02/08/2022 Digital Access Answer Date Recorded No 12/27/2023 No 12/27/2023 Do you have reliable internet access at home? I choose not to answer 12/27/2023 Do you have a device (e.g., phone, tablet, computer) with a working camera? I choose not to answer 12/27/2023 Intimate Partner Violence Answer Date R ecorded Denied Basic Needs Not on file 12/27/2023 In the past 12 months have y ou been in a relationship with a person who hurts, threatens, or tries to control you? No 12/27/2023 Worried food would run out Not on file 12/26 In the past 12 months have y ou been in a relationship with a person who hurts, threatens, or tries to control you? No 12/27/2023 Sex and Gender Information Value Date Recorded [...] Care Team (Late st Contact Info) Description 07/04/2025 11:00 AM EST Office Visit [facility] [address] [place] [address] Gerard Ren MD [address] [place] [address] documented as of this encounter Visit Diagnoses Not on filedocumented in this encounter Additional Health Concerns Assessment Noted Time PHQ-2 Depression Total Score: 0 12/27/19 10:50 AM EDT documented as of this encounter Care Teams Juvenile Officer Relationship Specialty Start Date End Date Gerard Ren MD [address] [place] [address] PCP - General Internal Medicine 07/10/23 Merritt Trevino MD [address] [place] [address] Insurance Assigned Provider 08/12/23 08/11/24 Gerard Ren MD [address] [place] [address] Insurance Assigned Provider 08/11/24 11/16/24 documented as of this encounter Additional Source Comments The information contained in this document represents components of the legal health record. It is not the complete legal health record.[facility]
--- OUTSIDE RECORDS SUMMARY | 2025-02-24 10:49 | XMS_ITS | Encounter Summary ---
Author Organization [facility] Address [address] [place] [address] Phone Care Team Providers Care Computer System Specialist Name Role Phone Lauriealexander Liza Beatris SENIOR SOLUTIONS WORKFLOW CONSULTANT Primary Care Provider Merritt Trevino MD Unavailable Gilda Ayoub SOFTWARE CONSULTANT Primary Care Provider [phone] Gerard Ren MD Primary Care Provider [phone] Gerard Ren MD Unavailable Encounter Details Date Type Department Care Team (Late st Contact Info) Description 07/11/2022 Procedure Pass [facility], Ct Scan - [address] [address] Social History Tobacco Use Types Packs/Day Years [...] high school, GED, job training, learning the Chinese language, technical skills, or developing parenting skills)? [...] 07/04/2025 11:00 AM EST Office Visit [facility] [address] [place] [address] Gerard Ren MD [address] [place] [address] documented as of this encounter Visit Diagnoses Not on filedocumented in this encounter Additional Health Concerns Assessment Noted Time PHQ-2 Depression Total Score: 0 02/09/20 22 9:04 AM EDT documented as of this encounter Care Teams Computer System Specialist Relationship Specialty Start Date End Date Liza Colvin CNP [address] [place] [address] [email or web address] PCP - General Internal Medicine 08/07/20 10/23/22 Gilda Ayoub NP [address] [place] [address] [email or web address] PCP - General Family Medicine 10/24/22 07/09/23 Gerard Ren MD [address] [place] [address] PCP - General Internal Medicine 07/10/23 Merritt Trevino MD [address] [place] [address] Insurance Assigned Provider 08/12/23 08/11/24 Gerard Ren MD [address] [place] [id number] Insurance Assigned Provider 08/11/24 11/16/24 documented as of this encounter Additional Source Comments The information contained in this document represents components of the legal health record. It is not the complete legal health record.[facility]
--- OUTSIDE RECORDS SUMMARY | 2025-02-24 10:49 | XMS_ITS | Encounter Summary ---
Author Organization [facility] Address [address] [place] [phone] Phone Care Team Providers Care Foam Charger Name Role Phone Lauriealexander Liza Beatris NANOTECHNOLOGY ENGINEERING TECHNICIAN Primary Care Provider Merritt Trevino MD Unavailable Gilda Ayoub CORPORATE DEVELOPMENT OFFICER Primary Care Provider [phone] Gerard Ren MD Primary Care Provider [phone] Gerard Ren MD Unavailable Encounter Details Date Type Department Care Team (Late st Contact Info) Description 06/10/2022 Procedure Pass [facility], Ct Scan - [address] [address] Social History Tobacco Use Types Packs/Day Years [...] high school, GED, job training, learning the Sinhala language, technical skills, or developing parenting skills)? [...] 07/04/2025 11:00 AM EST Office Visit [facility] Internal Medicine [address] [place] [address] Gerard Ren MD [address] [place] [address] documented as of this encounter Visit Diagnoses Not on filedocumented in this encounter Additional Health Concerns Assessment Noted Time PHQ-2 Depression Total Score: 0 02/09/20 22 9:04 AM EDT documented as of this encounter Care Teams Foam Charger Relationship Specialty Start Date End Date Liza Colvin CNP [address] [place] [address] PCP - General Internal Medicine 08/07/20 10/23/22 Gilda Ayoub NP [address] [place] [address] [email or web address] PCP - General Family Medicine 10/24/22 07/09/23 Gerard Ren MD [address] [place] [address] PCP - General Internal Medicine 07/10/23 Merritt Trevino MD [address] [place] [address] Insurance Assigned Provider 08/12/23 08/11/24 Gerard Ren MD [address] [place] [id number] Insurance Assigned Provider 08/11/24 11/16/24 documented as of this encounter Additional Source Comments The information contained in this document represents components of the legal health record. It is not the complete legal health record.[facility]
--- OUTSIDE RECORDS SUMMARY | 2025-02-24 10:50 | XMS_ITS | Clinical Summary ---
Author Organization [facility] Address [address] [place] [address] Phone Care Team Providers Care Warp Knitting Machine Operator Name Role Phone Gerard Ren MD Primary Care Provider [phone] Allergies Active Allergy Reactions Criticality Noted Date Comments Aspirin Hives 06/25/2018 Diphenhydramine Hcl Hives 06/25/2018 Medications COQ10, LIPOSOMAL UBIQUINOL, ORAL Take 1 tablet by mouth daily. 09/18/19 23 Active cholecalciferol, vitamin D3, (VITAMIN D3 ORAL) Take 1 capsule by mouth daily. Active tamsulosin (FLOMAX) 0.4 mg CapIndications:B enign prostatic hyperplasia with urinary frequency Take 1 capsule by mouth once daily 90 capsule 3 06/05/19 24 Active blood pressure monitor KitIndications:B enign essential hypertension 1 each by Miscellaneous route as directed. 1 kit 05/24/19 25 Active atorvastatin (LIPITOR) 80 MG tablet Take 80 mg by mouth daily. 03/11/20 24 Active metoprolol succinate (TOPROL-XL) 25 MG 24 hr tablet Take 25 mg by mouth daily. for 90 days Active PLAVIX 75 mg tablet Take 75 mg by mouth daily. 03/11/20 24 Active aspirin 81 MG EC tablet Take 81 mg by mouth daily. 03/11/20 24 Active acetaminophen (TYLENOL) 325 mg tablet Take 650 mg by mouth every 6 (six) hours as needed. Active lisinopril (PRINIVIL,ZESTRI L) 10 MG tablet Take 10 mg by mouth daily. Active Active Problems Problem Noted Date Diagnosed Date Encounter for abdominal aortic aneurysm (AAA) jaison orantes 01/01/2025 Cardiac arrest, cause unspecified 07/02/2024 Assessment & Plan (07/02/2024 11:37 AM EST): 03/2024 s/p cardiac arrest secondary to STEMI with 5x resuscitation need and urgent angioplasty and stent placement. Exam negative for signs of CHF, he will continue on Lipitor full-strength, lisinopril 20 mg, metoprolol and Plavix as well as aspirin 81 mg. He will avoid naproxen and ibuprofen as instructed by cardiology. Ventricular tachycardia, unspecified 07/02/2024 Chronic pain of right knee 07/02/2024 Assessment & Plan (07/02/2024 11:39 AM EST): Chronic right-sided knee pain, patient stated that he had success with [facility] physiatry regarding his shoulder injections so he would like referral back to the sharepoint engineer who had performed the injections and would like to be seen regarding his right knee which hurts when he is trying to rehab given the cardiac arrest that he had back in March. He is doing quite well though so we will set up the referral. Aneurysm of ascending aorta without rupture 12/07 Lumbosacral radiculopathy at L3 05/26/2023 Assessment & Plan (05/26/2023 4:16 PM EST): What the patient is describing appears to be a left-sided L3 nerve root impingement that came on insidiously about 7 days ago in his sleep. For now no further diagnostics needed but we will trial him on prednisone 20 mg p.o. twice daily and I warned him about possible excitation with the prednisone. If that were the case then go down to 20 mg daily. Will treat him for 1 week and then he will call back and we will see how he is doing, I warned him that we can only do a few weeks of the prednisone but I could set him up with [facility] if he was not feeling better off of the prednisone for back injection. Mixed hyperlipidemia 03/23/2023 Coronary artery calcification seen on CAT scan 1 05/23/2022 Skin lesion of right arm 09/23/2022 Assessment & Plan (09/23/2022 10:32 PM EDT): To follow up with dermatology Pulmonary nodules 07/24/2022 Overview (03/23/2023): Non-smoker (smoked as teenager), exposed to asbestos/dust 25 years Assessment & Plan (09/23/2022 10:29 PM EDT): Due for 3-6 mo f/u CT chest, ordered. Assessment & Plan (07/24/2022 10:37 PM EDT): Plan 3-[address] follow up as recommended. Depending upon those results could consider formal pulmonology workup Mass of scalp 07/24/2022 Assessment & Plan (07/24/2022 10:38 PM EDT): Plans to address at dermatology appt upcoming Right groin pain 03/15/2022 Assessment & Plan (07/24/2022 10:39 PM EDT): Recommend re-evaluation by general surgery. He prefers [facility]. ? Vascular vs lymph swelling at the area Assessment & Plan (03/15/2022 3:43 PM EST): This is a 61-year-old gentleman with right groin pain for the past 3 weeks which is worse at the end of the day. He does not note a bulge but reports he has a burning sensation in the right groin and feels pressure in the right groin. He saw his primary care doctor who diagnosed him with a inguinal hernia. I was unable to appreciate an inguinal hernia in either the right or left inguinal canal on today's visit. Given that I cannot palpate an inguinal hernia on physical examination and the patient is having right groin discomfort I will obtain a CT scan abdomen and pelvis to evaluate for inguinal hernia. Once I have the results of the CAT scan I will call the patient to discuss the results and if there is in fact a right inguinal hernia I have discussed laparoscopic repair of the left inguinal hernia with mesh. I discussed risk benefits alternatives with the patient and he would like to proceed if there is a hernia found. Right inguinal hernia 03/01/2022 Assessment & Plan (09/23/2022 10:30 PM EDT): Awaiting b/l hernia repair Assessment & Plan (03/01/2022 2:39 PM EDT): Right inguinal hernia detected on exam. Currently nonurgent, referral to [facility] surgery for elective surgery, patient agrees. Routine general medical exam in[facility] 02/08/2022 Assessment & Plan (01/01/2025 5:24 PM EDT): Overall he is doing quite well we can see the patient back in 6 months to follow-up on blood pressure and other metrics. He will go today for Chem-12 screening for hepatitis C and lipid profile PSA. He will continue on Plavix through his communication center coordinator until his continue on aspirin. Assessment & Plan (12/27/2023 3:32 PM EDT): Exam is unremarkable and blood pressure within target range. Will continue the antihypertensive as such and will also continue the Lipitor as such. We can see the patient back in 6 months. He is having still a little bit of problems with prostate, we will continue with the Flomax. I will advise him next time to consider super beta prostate to help with flow. In regards to imaging will obtain a CT scan as it is now due for checking ascending aortic ectasia versus aneurysm and pulmonary nodules. Chest CT without contrast. He is able to manage all of his ADLs, no signs of cognitive impairment. Prostate marker well within normal range. Assessment & Plan (02/08/2022 10:19 AM EDT): [facility] wellness, pt doing well, no issues with adls Benign prostatic hyperplasia with urinary freque ncy 02/08/2022 Assessment & Plan (09/23/2022 10:30 PM EDT): Continue tamsulosin Assessment & Plan (07/24/2022 10:39 PM EDT): Referring to urology, he did not make an appointment with last year's referral Assessment & Plan (02/08/2022 10:18 AM EDT): dw pt about starting avadart, he will research and get back to us on it. Chronic pain of both shoulders 09/21/2018 Assessment & Plan (09/23/2022 10:30 PM EDT): continue naproxen for acute on chronic shoulder pain. Declines add'l intervention at this time Pure hypercholesterolemia 09/21/2018 Assessment & Plan (09/23/2022 10:29 PM EDT): Continue atorvastatin Assessment & Plan (07/24/2022 10:40 PM EDT): Discussed recent imaging results, family history, and ASCVD risk score. He is agreeable to try atorvastatin 20 mg nightly. Discussed treatment goals and common side effects. Check LFTs in 8 weeks. He may consider taking CoQ10 as well. Cervicalgia 09/21/2018 Benign essential hypertension 06/25/2018 Assessment & Plan (01/01/2025 5:23 PM EDT): He is having a little bit of dizziness and blood pressure low so we reduced the lisinopril from 20 down to 10 mg. Check his blood pressure at home and report back to us. Assessment & Plan (07/02/2024 11:36 AM EST): Blood pressure well-controlled continue the lisinopril at 20 mg, will obtain lab work in 6 months as he most recently had lab work through his communication center coordinator. Assessment & Plan (09/23/2022 10:28 PM EDT): BP well managed on current medications Assessment & Plan (07/24/2022 10:36 PM EDT): Recommend trial of increased lisinopril to 20 mg daily Encounters Date Type Department Care Team Description 01/15/2025 Telephone [facility] Internal Medicine [address] [place] [address] Gerard Ren MD Referral ([facility] Cardiovascular + see media 12/25) 01/03/2025 Telephone [facility] Internal Medicine [address] [place] [address] Gerard Ren MD Results 01/01/2025 12:10 PM EDT - 01/01/2025 11:59 PM EDT Hospital Encounter [facility] [address] [place] [address] Gerard Ren MD Discharge Disposition: Home or Self Care 01/01/2025 11:00 AM EDT Office Visit [facility] Internal Medicine [address] [place] [address] Gerard Ren MD Routine general medical examination at a health care facility (Primary Dx); Need for hepatitis C screening test; Encounter for abdominal aortic aneurysm (AAA) screening; Screening for prostate cancer; Benign essential hypertension; Coronary artery calcification seen on CAT scan; Aneurysm of ascending aorta without rupture; Mixed hyperlipidemia; Chronic pain of right knee 01/01/2025 Telephone [facility] Internal Medicine [address] [place] [address] Gerard Ren MD Skin Check from Last 3 Months Immunizations Immunization Administration Dates Next Due COVID-19 (Pre-02/27) Moderna Vaccine, mRNA, PF 09/10/2020,08/13/2020 Influenza Quadrivalent Prese rvative Free IM 01/26/2019 Influenza Recombinant Imelda valent Preservative Free IM 03/03/2023,04/07/2022,03/10/2021,2019 Influenza, Unspecified Formulation 03/10/2024 Pneumococcal conjugate PCV21 07/02/2024 Zoster recombinant 11/06/2024,07/02/2024 Family History Medical History Relation Comments Pacemaker Maternal Uncle 1 Heart failure Maternal Uncle 2 Coronary artery disease Mother Relation Status Comments Brother Alive Father Maternal Uncle 1 Maternal Uncle 2 Mother adult SIDS Sister 1 Alive Sister 2 Alive Social History Tobacco Use Types Packs/Day Years Used Date Smoking Tobacco: Former Cigarettes 1.5 14 0 06/25/1968 - 06/25/1982 Smokeless Tobacco: Never Tobacco Cessation:Counseling Given: Not Answered Alcohol Use Standard Drinks/Week Comments No 0 (1 standard drink = 0.6 oz pur e alcohol) Child or Family Care Answer Date Record ed Do you have problems with on e of the following making it difficult for you to work, study, or receive health care? No 01/01/2025 Education Answer Date Recorded Are you interested in help w ith more adult education (for example, completing high school, GED, job training, learning the [place] language, technical skills, or developing parenting skills)? No 12/27/2023 Are you concerned about learning? Not on file 12/27/2023 No 12/27/2023 Yes 12/27/2023 Food Answer Date Recorded Within the past 6 months we worried whether our food would run out before we got money to buy more. Never True 01/01/2025 Within the past 6 months the food we bought just didn't last and we didn't have enough money to get more. Never True Residential Stability Answer Date Recor ded What is your housing situation today? I have gisselle sing 01/01/2025 How many times have you move d in the past 12 months? Zero (I did not move) 01/01/2025 Paying for Meds Answer Date Recorded Do you have trouble paying for medicines? No 01/01/2025 Paying Utility Bills Answer Date Record ed Do you have trouble paying your heating or elect ricity bill? No 01/01/2025 Transportation Answer Date Recorded Has the lack of transportati on kept you from medical appointments or from getting medications? No 01/01/2025 Unemployment Answer Date Recorded Are you currently unemployed or working on a part-time or temporary basis, and looking for work? No 02/08/2022 Digital Access Answer Date Recorded No 01/01/2025 Yes 01/01/2025 Do you have reliable internet access at home? Ye s 01/01/2025 Do you have a device (e.g., phone, tablet, computer) with a working camera? Yes 01/01/2025 Intimate Partner Violence Answer Date R ecorded Denied Basic Needs Not on file 01/01/2025 In the past 12 months have y ou been in a relationship with a person who hurts, threatens, or tries to control you? No 01/01/2025 Worried food would run out Not on file 01/01 In the past 12 months have y ou been in a relationship with a person who hurts, threatens, or tries to control you? No 01/01/2025 Sex and Gender Information Value Date Recorded Sex Assigned at Male 02/23/2022 7:43 PM EDT Legal Sex Male 9:55 AM EDT Gender Identity Male 02/23/2022 7:43 PM EDT Sexual Orientation Not on file Occupation Industry Job Start Date Job End Date disabled Not on file Not on file Not on file Last Filed Vital Signs Vital Sign Reading Time Taken Comments Blood Pressure 96/62 01/01/2025 10:59 AM EDT Pulse 62 01/01/2025 10:59 AM EDT Temperature 36.4 C (97.5 F) 01/01/2025 10:59 AM EDT Respiratory Rate 14 01/01/2025 10:59 AM EDT Oxygen Saturation 98% 01/01/2025 10:59 AM EDT Inhaled Oxygen Concentration - - Weight 80.4 kg (177 lb 3.2 oz) 01/01/2025 10:59 AM EDT Height 177.6 cm (5' 9.92 ) 01/01/2025 10:59 AM E DT Body Mass Index 25.48 01/01/2025 10:59 AM EDT Plan of Treatment Upcoming Encounters Date Type Department Care Team (Late st Contact Info) Description 07/04/2025 11:00 AM EST Office Visit [facility] Internal Medicine [address] [place] [address] Gerard Ren MD [address] [place] [address] [email or web address] Health Maintenance Due Date Last Done Comments Adult Td,Tdap Booster 1960 COLOGUARD 10/16/2003 FIT TEST 10/16/2003 FOBT 10/16/2003 SIGMOIDOSCOPY 10/16/2003 VIRTUAL COLONOSCOPY 10/16/2003 INFLUENZA VACCINE (#1) 2024 , 03/03/2023, 03/03/2023, Additional history exists COVID-19 VACCINE ( season) 2025 05/25/2022, 04/08/2021, 09/10/2020, Additional history exists BLOOD PRESSURE 07/04/2025 01/01/2025 CREATININE LEVEL 01/01/2026 01/01/2025, 04/2024, 05/19/2022, Additional history exists DEPRESSION SCREENING 01/01/2026 01/01/2025 POTASSIUM LEVEL 01/01/2026 01/01/2025, 12/06, 05/19/2022, Additional history exists COLONOSCOPY 11/04/2026 11/04/2016, 11/04/2016 COLORECTAL CANCER SCREENING 11/04/2026 SCREENING FOR DIABETES 01/02/2028 01/01/2025 RSV VACCINE (1 - 1-dose 75+ series) 2033 ABDOMINAL AORTIC ANEURYSM (AAA) SCREENING 12/31/2036 07/05/2022, 03/30/2022 Postponed from 10/16/2023 (Not Clinically Appropriate) PNEUMOCOCCAL VACCINES (50+ years) Completed 07/02/2024 ZOSTER VACCINES Completed 11/06/2024, 07/02/2024 HEPATITIS C SCREENING Completed 01/01/2025 SMOKING STATUS SCREENING (Once After 26 Yrs) Completed 01/01/2025 HEPATITIS A VACCINES Aged Out No long er eligible based on patient's age to complete this topic HIB VACCINES Aged Out No longer eligi ble based on patient's age to complete this topic MENINGOCOCCAL VACCINES (ACWY) Aged Out No longer eligible based on patient's age to complete this topic MENINGOCOCCAL VACCINES (B) Aged Out N o longer eligible based on patient's age to complete this topic Medical Devices Not on file Procedures Procedure Name Priority Date/Time Associated Diagnosis Comments COMPREHENSIVE METABOLIC PANEL Routine 01/01/2025 12:10 PM EDT Benign essential hypertension Mixed hyperlipidemia LIPID PANEL Routine 01/01/2025 12:10 PM EDT Mixed hyperlipidemia PSA (SCREENING) Routine 01/01/2025 12:10 PM EDT Screening for prostate cancer HEPATITIS C ANTIBODY, QUALITATIVE Routine 01/01/2025 12:10 PM EDT Need for hepatitis C screening test CT ABDOMEN/PELVIS WITH CONTRAST Routine 07/05/2022 2:06 PM EST Right groin pain HM COLONOSCOPY FOR RESULT ENTRY ONLY Routine 11/04/2016 from Last 3 Months or Most Recently Relevant to Health Maintenance Results * (ABNORMAL) Comprehensive metabolic panel (01/01/2025 12:10 PM EDT) SODIUM 132(L) 133 - 146 mmol/L [facility] POTASSIUM 4.7 3.3 - 5.1 mmol/L [facility] CHLORIDE 98 96 - 108 mmol/L [facility] CO2 25 21 - 35 mmol/L [facility] BUN 16 6 - 19 mg/dL [facility] CREATININE 1.00 0.5 - 1.5 mg/dL [facility] GLUCOSE 96 70 - 99 mg/dL [facility] ALBUMIN 4.2 3.9 - 4.8 g/dL [facility] TOTAL PROTEIN 7.4 6.5 - 8.0 g/dL [facility] CALCIUM 9.4 8.4 - 10.3 mg/dL [facility] ALKALINE PHOSPHATASE 101 39 - 117 U/L [facility] TOTAL BILIRUBIN 0.6 0.0 - 1.2 mg/dL [facility] AST 31 0 - 37 U/L [facility] ALT 27 0 - 40 U/L [facility] GLOBULIN 3.2 1 - 4.8 g/dL [facility] EGFR 83 >59 mL/min/1.7 3m2 [facility] Comment:Estimated glomerular filtration rate calculated using the CKD-EPI refit equation. ANION GAP 14 10 - 20 mmol/L [facility] Blood 01/01/2025 12:1 0 PM EDT 01/01/2025 6:16 PM EDT us Gerard Ren MD LAB BLOOD ORDERABLES Final Resul t [facility] [address] [place] [address] * Hepatitis C antibody, qualitative (01/01/2025 12:10 PM EDT) HCV NON-REACTIV E NON-REACTI VE [facility] Blood 01/01/2025 12:1 0 PM EDT 01/01/2025 6:16 PM EDT us Gerard Ren MD LAB BLOOD ORDERABLES Final Resul t Performing Organization Address City/[facility]/ZIP Co de Phone Number [address] [address] * PSA (screening) (01/01/2025 12:10 PM EDT) PSA 1.78 0 - 4.00 ng/mL [facility] Comment: Test Methodology Peggy [id number] Patient results determined by assays using different manufacturers or methods may not be comparable. Blood 01/01/2025 12:1 0 PM EDT 01/01/2025 6:25 PM EDT us Gerard Ren MD LAB BLOOD ORDERABLES Final Resul t Performing Organization Address City/[facility] Co de Phone Number [address] [address] * (ABNORMAL) Lipid panel (01/01/2025 12:10 PM EDT) HDL 50 mg/dL [facility] Comment: Interpretation <40 mg/dL: Low HDL cholesterol (major risk factor for CHD) Greater than or equal to 60 mg/dL: High HDL cholesterol ( negative risk factor for CHD) HDL - cholesterol is affected by a number of factors, e.g. smoking, excerise, hormones, sex and age. CHOLESTEROL 99 0 - 240 mg/dL [facility] TRIGLYCERIDES 66 30 - 160 mg/dL [facility] LDL 36(L) 50 - 129 mg/dL [facility] Comment: LDL levels in terms of risk for coronary heart disease: <100 mg/dL: Optimal 100-129 mg/dL: Near or above optimal 130-159 mg/dL: Borderline high 160-189 mg/dL: High >190 mg/dL: Very High CARDIAC RISK RATIO 2.0(L) 3.4 - 5.0 [facility] Blood 01/01/2025 12:1 0 PM EDT 01/01/2025 6:20 PM EDT us Gerard Ren MD LAB BLOOD ORDERABLES Final Resul t [address] [address] * CT ABDOMEN/PELVIS WITH CONTRAST (07/05/2022 2:06 PM EST) Anatomical Region Laterality Modality Abdomen, Pelvis Computed Tomogra phy 07/06/2022 1:33 PM EST Impressions 07/06/2022 1:59 PM EST 1. Fat-containing inguinal hernias. No bowel-containing hernias. 2. 4 mm incidental nodule in the lower lobe of the right lung. If patient is at low risk for malignancy no follow-up necessary. If patient is at high risk for malignancy a dedicated CT of the chest could be considered. 3. No evidence of acute pathology in the abdomen or pelvis. Narrative 07/06/2022 1:[address] ABDOMEN/PELVIS WITH CONTRAST HISTORY: Pain, question hernia. TECHNIQUE: Multidetector-row CT of the abdomen and pelvis was performed after administration of intravenous contrast using tailored dose modulation techniques. Images were reconstructed in the axial, coronal, and sagittal planes. COMPARISON: Pain, question hernia. FINDINGS: Lower Chest: 4 mm nodule in the lower lobe of the right lung (series 4, image 11). This region of the lungs off the field of view on 03/30/2022. Moderate amount of coronary artery calcifications in the LAD territory. Small hiatal hernia. Liver: Multiple well-circumscribed hypodense small masses scattered within the liver consistent with cysts. There are other smaller hypodense lesions which are too small to actively characterize but are likely cysts or hemangiomas. Liver margins are smooth. Liver normal in size. Biliary: No biliary ductal dilation. Spleen: Normal. No splenomegaly or focal lesions. Pancreas: Normal. No masses or ductal dilatation. Adrenal Glands: Normal. No nodules. Kidneys/Ureters: Multiple hypodense masses in the kidneys consistent with cysts. By far, the largest is again an 8 cm cyst in the lower pole of the left kidney. No pelvocaliectasis. Ureters normal in caliber. Bowel: No marked bowel distention or evidence of bowel wall thickening. Peritoneum/Retroperitoneum: No ascites. No free air. Lymph Nodes: No suspicious lymph nodes. Pelvic Organs/Bladder: Stable moderate prostatomegaly. Vessels: No significant changes. Portal vein patent. Abdominal aorta normal in caliber. Stable atherosclerotic changes. Bones/Soft Tissues: Similar small fat-containing inguinal hernias. Procedure Note Yo Blackmon MD - 07/06/2022 CT ABDOMEN/PELVIS WITH CONTRAST HISTORY: Pain, question hernia. TECHNIQUE: Multidetector-row CT of the abdomen and pelvis was performedafter administration of intravenous contrast using tailored dosemodulation techniques. Images were reconstructed in the axial, coronal,and sagittal planes. COMPARISON: Pain, question hernia. FINDINGS: Lower Chest: 4 mm nodule in the lower lobe of the right lung (series 4,image 11). This region of the lungs off the field of view on 03/30/2022.Moderate amount of coronary artery calcifications in the LAD territory.Small hiatal hernia. Liver: Multiple well-circumscribed hypodense small masses scattered withinthe liver consistent with cysts. There are other smaller hypodense lesionswhich are too small to actively characterize but are likely cysts orhemangiomas. Liver margins are smooth. Liver normal in size. Biliary: No biliary ductal dilation. Spleen: Normal. No splenomegaly or focal lesions. Pancreas: Normal. No masses or ductal dilatation. Adrenal Glands: Normal. No nodules. Kidneys/Ureters: Multiple hypodense masses in the kidneys consistent withcysts. By far, the largest is again an 8 cm cyst in the lower pole of theleft kidney. No pelvocaliectasis. Ureters normal in caliber. Bowel: No marked bowel distention or evidence of bowel wall thickening. Peritoneum/Retroperitoneum: No ascites. No free air. Lymph Nodes: No suspicious lymph nodes. Pelvic Organs/Bladder: Stable moderate prostatomegaly. Vessels: No significant changes. Portal vein patent. Abdominal aortanormal in caliber. Stable atherosclerotic changes. Bones/Soft Tissues: Similar small fat-containing inguinal hernias. IMPRESSION: 1. Fat-containing inguinal hernias. No bowel-containing hernias. 2. 4 mm incidental nodule in the lower lobe of the right lung. If patientis at low risk for malignancy no follow-up necessary. If patient is athigh risk for malignancy a dedicated CT of the chest could beconsidered. 3. No evidence of acute pathology in the abdomen or pelvis. Liza Colvin [facility] PASTRY BAKER IMG CT ABD/PELVIS Milagros l Result * COLONOSCOPY FOR RESULT ENTRY ONLY (11/04/2016) Colonoscopy 10 yrs Historical Provider HEALTH MAINTENANCE Final Result from Last 3 Months or Most Recently Relevant to Health Maintenance Insurance [place] [id number] [facility] [place]UE REPLACEMENT MEDICARE PART A & B [facility] [place] BL[place] MEDICARE PART A & B MEDICARE PART A & B MEDICARE PART A & [place] MEDICARE PART A & B MEDICARE PART A & B B [facility] MEDICARE HMO BLUE REPLACEMENT MEDICARE PART A & B [facility] MEDICARE HMO BLUE REPLACEMENT MEDICARE PART A & B [facility] [place] BL[place]AC[place] Care Teams Warp Knitting Machine Operator Relationship Specialty Start Date End Date Gerard Ren MD [address] [place] [id number] [email or web address] PCP - General Internal Medicine 07/10/23 Additional Source Comments The information contained in this document represents components of the legal health record. It is not the complete legal health record.[facility]
--- OUTSIDE RECORDS SUMMARY | 2025-02-24 10:50 | XMS_ITS | Encounter Summary ---
Author Organization [facility] Address [address] [place] [address] Phone Care Team Providers Care Bird Trapper Name Role Phone Gerard Ren MD Primary Care Provider [phone] Reason for Referral * Consultation (Within 3 days (urgent)) - Authorized Specialty Diagnoses / Procedures Referred By Corby colon Referred To Contact Diagnoses Acute ischemic heart disease Gerard Ren MD [address] [place], [place] Phone: tel: fax: [email or web address] Houston Whitaker MD [address] [place] [address] Dr Mckeon [address] [place] [address] Phone: tel: Referral ID Status Reason Start Date Expiration Date V isits Requested Visits Authorized [id number] Authorized 12/25/2024 12/25/2025 6 6 Reason for Visit * Reason Onset Date Comments Referral 01/15/2025 [facility] [place] + see media 12/25 Encounter Details Date Type Department Care Team (Late st Contact Info) Description 01/15/2025 Telephone [employer] [facility] Internal Medicine [address] [place], [place] [phone] Gerard Ren MD [address] [place], [place] [email or web address] Referral ([facility] [place]ovascular + see media 12/25) Social History Tobacco Use Types Packs/Day Years [...] high school, GED, job training, learning the Turkish language, technical skills, or developing parenting skills)? [...] on file documented as of this encounter Progress Notes * Eneida Barksdale - 01/15/2025 11:36 AM EDT Patient had appointment 12/25 , needs insurance auth * Cami Zendejas CNP - 01/15/2025 11:28 AM EDT Signed and faxed Cami Zendejas NP [facility] Support 01/15/25 11:29 AM * Ceci Barnes RN - 01/15/2025 10:36 AM EDT Pended * Kay Bond - 01/15/2025 10:28 AM EDT [facility] Smart Phrases: Referral Request 1. Name of the office where the patient has been seen/requests to be seen: [facility] [place] 2. Reason for referral/specialist appointment and the diagnosis code: I24.9 2A. Have you seen this provider before for this same problem? YES/NO: yes 2B. If this is a new problem, is your PCP aware of your symptoms? YES/NO: yes 3. Date of appointment(s):12/25 4. Name of specialist provider: Dr. Hyman 5. NPI number to enter for referral authorization (enter n/a if not available): [id number] 6. Number of visits requested for referral: 6 7. Fax number of specialist office to send referral authorization: [phone] Central Support Loading Machine Adjuster (Please do not reply to this user; this inbox is not monitored.) Thank you. documented in this encounter Plan of Treatment Upcoming Encounters Date Type Department Care Team (Late st Contact Info) Description 07/04/2025 11:00 AM EST Office Visit [facility] Internal Medicine [address] [place] [address] Gerard Ren MD [address] [place] [address] [email or web address] Scheduled Referrals Name Type Priority Associated Diagnoses Order Schedule Ambulatory referral to External Cardiology Outpatient Referral Routine Acute ischemic heart disease Ordered: 01/15/2025 documented as of this encounter Visit Diagnoses Diagnosis Acute ischemic heart disease- Primary Acute myocardial infarction, unspecified site, episode of care unspecified documented in this encounter Additional Health Concerns Assessment Noted Time PHQ-2 Depression Total Score: 0 01/02/20 25 11:03 AM EDT documented as of this encounter Care Teams Bird Trapper Relationship Specialty Start Date End Date Gerard Ren MD [address] [place] [phone] [email or web address] PCP - General Internal Medicine 07/10/23 documented as of this encounter Additional Source Comments The information contained in this document represents components of the legal health record. It is not the complete legal health record.[facility]
--- OUTSIDE RECORDS SUMMARY | 2025-02-24 10:50 | XMS_ITS | Encounter Summary ---
Author Organization [facility] Address [address] [place] [address] Phone Care Team Providers Care Advertising Strategist Name Role Phone Liza Colvin CALL OR CONTACT CENTRE OPERATOR Primary Care Provider Merritt Trevino MD Unavailable [phone] Gilda Ayoub NP Primary Care Provider [phone] Gerard Ren MD Primary Care Provider [phone] Gerard Ren MD Unavailable Encounter Details Date Type Department Care Team (Late st Contact Info) Description 05/30/2022 Ancillary Orders [facility] Internal Medicine [address] [place], [place] [phone] Liza Colvin, KEVIN [address] [place], [place] [phone] [email or web address] Right groin pain Social History Tobacco Use Types Packs/Day Years [...] high school, GED, job training, learning the Belarusian language, technical skills, or developing parenting skills)? [...] housing situation today? I have gisselle sing 02/08/2022 How many times have you move [...] Description 07/04/2025 11:00 AM EST Office Visit [facility] Internal Medicine [address] [place] [address] Gerard Ren MD [address] [place] [address] documented as of this encounter Results * US Inguinal (Right) (05/30/2022 11:48 AM EST) Anatomical Region Laterality Modality Chest Ultrasound 05/30/2022 5:06 PM EST Impressions 05/30/2022 5:07 PM EST Fat again extends through the right inguinal canal in keeping with fat containing right inguinal hernia. Narrative 05/30/2022 5:07 PM EST US INGUINAL (RIGHT) TECHNIQUE: Ultrasound of the right inguinal canal. COMPARISON: CT abdomen pelvis 03/30/2022 FINDINGS: Fat is again to extend through the right inguinal canal. The mouth of the right inguinal canal measures 2.3 cm. No herniated loops of bowel are demonstrated. Procedure Note Lexus Mena MD - 05/30/2022 US INGUINAL (RIGHT) TECHNIQUE: Ultrasound of the right inguinal canal. COMPARISON: CT abdomen pelvis 03/30/2022 FINDINGS: Fat is again to extend through the right inguinal canal. The mouth of theright inguinal canal measures 2.3 cm. No herniated loops of bowel aredemonstrated. IMPRESSION: Fat again extends through the right inguinal canal in keeping with fatcontaining right inguinal hernia. us Liza Colvin CNP IMG US EXTREMITY Final Result documented in this encounter Visit Diagnoses Diagnosis Right groin pain Abdominal pain, right lower quadrant Right groin pain Abdominal pain, right lower quadrant documented in this encounter Additional Health Concerns Assessment Noted Time PHQ-2 Depression Total Score: 0 02/09/20 22 9:04 AM EDT documented as of this encounter Care Teams Advertising Strategist Relationship Specialty Start Date End Date Liza Colvin CNP [address] [place] [phone] PCP - General Internal Medicine 08/07/20 10/23/22 Gilda Ayoub NP [address] [place] [address] PCP - General Family Medicine 10/24/22 07/09/23 Gerard Ren MD [address] [place] [address] [email or web address] PCP - General Internal Medicine 07/10/23 Merritt Trevino MD [address] [place] [address] [email or web address] Insurance Assigned Provider 08/12/23 08/11/24 Gerard Ren MD [address] [place] [address] [email or web address] Insurance Assigned Provider 08/11/24 11/16/24 documented as of this encounter Additional Source Comments The information contained in this document represents components of the legal health record. It is not the complete legal health record.[facility]
--- OUTSIDE RECORDS SUMMARY | 2025-02-24 10:50 | XMS_ITS | Encounter Summary ---
Author Organization [facility] Address [address] [place] [address] Phone Care Team Providers Care Window Covering Sales Consultant Name Role Phone Lauriealexander Liza Beatris ROVING TESTER LABORATORY Primary Care Provider Merritt Trevino MD Unavailable Gilda Ayoub HEALTH INFORMATION PROVIDER Primary Care Provider Gerard Ren MD Primary Care Provider [phone] Gerard Ren MD Unavailable Encounter Details Date Type Department Care Team (Late st Contact Info) Description 03/15/2022 Procedure Pass [facility], Ct Scan - [address] [address] Social History Tobacco Use Types Packs/Day Years [...] high school, GED, job training, learning the Maltese language, technical skills, or developing parenting skills)? [...] 07/04/2025 11:00 AM EST Office Visit [facility] Internal Medicine [address] [place] [address] Gerard Ren MD [address] [place] [address] documented as of this encounter Visit Diagnoses Not on filedocumented in this encounter Additional Health Concerns Assessment Noted Time PHQ-2 Depression Total Score: 0 02/09/20 22 9:04 AM EDT documented as of this encounter Care Teams Window Covering Sales Consultant Relationship Specialty Start Date End Date Liza Colvin CNP [address] [place] [address] PCP - General Internal Medicine 08/07/20 10/23/22 Gilda Ayoub NP [address] [place] [address] [email or web address] PCP - General Family Medicine 10/24/22 07/09/23 Gerard Ren MD [address] [place] [address] PCP - General Internal Medicine 07/10/23 Merritt Trevino MD [address] [place] [address] Insurance Assigned Provider 08/12/23 08/11/24 Gerard Ren MD [address] [place] [address] Insurance Assigned Provider 08/11/24 11/16/24 documented as of this encounter Additional Source Comments The information contained in this document represents components of the legal health record. It is not the complete legal health record.[facility]
--- OUTSIDE RECORDS SUMMARY | 2025-02-24 10:50 | XMS_ITS | Encounter Summary ---
Author Organization [facility] Address [address] [place] [address] Phone Care Team Providers Care Vegetable Grower Name Role Phone Merritt Trevino MD Unavailable [phone] Gilda Ayoub NP Primary Care Provider [phone] Gerard Ren MD Primary Care Provider [phone] Gerard Ren MD Unavailable Encounter Details Date Type Department Care Team (Late st Contact Info) Description 03/23/2023 Procedure Pass [facility], Ct Scan - [address] [address] Social History Tobacco Use Types Packs/Day Years [...] high school, GED, job training, learning the Yoruba language, technical skills, or developing parenting skills)? [...] 02/08/2022 Digital Access Answer Date Recorded No 09/28/2022 No 09/28/2022 Reliable internet access at home? Not on file 09/28/2022 Device with a working camera? Not on file Sex and Gender Information Value Date Recorded [...] Description 07/04/2025 11:00 AM EST Office Visit [facility] Internal Medicine [address] [place] [address] Gerard Ren MD [address] [place] [address] [email or web address] documented as of this encounter Visit Diagnoses Not on filedocumented in this encounter Additional Health Concerns Assessment Noted Time PHQ-2 Depression Total Score: 0 03/23/20 23 10:57 AM EST documented as of this encounter Care Teams Vegetable Grower Relationship Specialty Start Date End Date Gilda Ayoub NP [address] [place] [address] PCP - General Family Medicine 10/24/22 07/09/23 Gerard Ren MD [address] [place] [address] PCP - General Internal Medicine 07/10/23 Merritt Trevino MD [address] [place] [phone] Insurance Assigned Provider 08/12/23 08/11/24 Gerard Ren MD [address] [place] [id number] Insurance Assigned Provider 08/11/24 11/16/24 documented as of this encounter Additional Source Comments The information contained in this document represents components of the legal health record. It is not the complete legal health record.[facility]
--- OUTSIDE RECORDS SUMMARY | 2025-02-24 10:50 | XMS_ITS | Encounter Summary ---
Author Organization [facility] Address [address] [place] [address] Phone Care Team Providers Care Accounts Administrator Name Role Phone Lauriealexander Liza Beatris ORACLE BRM DEVELOPER Primary Care Provider Merritt Trevino MD Unavailable [phone] Gilda Ayoub MINE ANALYST Primary Care Provider Gerard Ren MD Primary Care Provider [phone] Gerard Ren MD Unavailable Encounter Details Date Type Department Care Team (Late st Contact Info) Description 07/20/2022 Procedure Pass [facility], Ct Scan - [address] [address] Social History Tobacco Use Types Packs/Day Years [...] high school, GED, job training, learning the Armenian language, technical skills, or developing parenting skills)? [...] 07/04/2025 11:00 AM EST Office Visit [facility] Internal Medicine [address] [place] [address] Gerard Ren MD [address] [place] [address] documented as of this encounter Visit Diagnoses Not on filedocumented in this encounter Additional Health Concerns Assessment Noted Time PHQ-2 Depression Total Score: 0 02/09/20 22 9:04 AM EDT documented as of this encounter Care Teams Accounts Administrator Relationship Specialty Start Date End Date Liza Colvin CNP [address] [place] [address] PCP - General Internal Medicine 08/07/20 10/23/22 Gilda Ayoub NP [address] [place] [address] [email or web address] PCP - General Family Medicine 10/24/22 07/09/23 Gerard Ren MD [address] [place] [address] PCP - General Internal Medicine 07/10/23 Merritt Trevino MD [address] [place] [address] Insurance Assigned Provider 08/12/23 08/11/24 Gerard Ren MD [address] [place] [phone] Insurance Assigned Provider 08/11/24 11/16/24 documented as of this encounter Additional Source Comments The information contained in this document represents components of the legal health record. It is not the complete legal health record.[facility]
== END ==
LOC: HO.CARD 09:42
PROVIDERS: PCP Internal Medicine; Visit Provider Internal Medicine Cardiovascular Disease
DX: R07.9 Chest pain, unspecified (principal)
CPT/HCPCS: 78452; 93017; A9500; J0280; J2785

== ENCOUNTER → 2025-02-24 09:48 | Outpatient (BNV) | payer MEDICARE, SELFPAY | PROVIDERS: PCP Internal Medicine | DX: I49.3 Ventricular premature depolarization (principal) | CPT/HCPCS: 78452; 93016; 93018 ==

== ENCOUNTER 2025-04-07 09:34 | Outpatient (REF) | payer MEDICARE, SELFPAY ==
--- NOTE | ~2025-04-07 | XR_ITS ---
EXAMINATION: XR KNEE, RIGHT CLINICAL INFORMATION: M17.11 - Unilateral primary osteoarthritis, right knee COMPARISON: None available. TECHNIQUE: AP view in upright position both knees. Lateral and sunrise views of the right knee. FINDINGS: Joint space narrowing involving the medial and to a lesser extent lateral compartments of the knees with sclerotic marginated articular surface and 3 mm depression of the medial tibial plateaus, both knees. Old traumatic deformity proximal diaphysis of the left fibula. No suprapatellar bursa joint effusion. No acute cortical disruption or malalignment. No lytic or blastic lesions. No gross soft tissue calcifications. XR/XR knee RT 3V IMPRESSION: Bicompartmental osteoarthrosis/osteoarthritis, moderate, bilaterally. Electronically signed by: Med Tanner MD 04/07/2025 10:57 AM ROMA DONAHUE
== END 2025-04-07 09:35 | disposition home or self-care (01) ==
LOC: HO.HOSX 09:34
PROVIDERS: Visit Provider Physician Assistant
DX: M17.11 Unilateral primary osteoarthritis, right knee (principal)
CPT/HCPCS: 73562; 99202

== ENCOUNTER 2025-04-07 10:41 | Outpatient (AMB) | payer MEDICARE, SELFPAY ==
--- NOTE | 2025-04-07 10:49 | A.OFFVIS_ITS ---
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 PCP referral-no notes. Patient reports ongoing pain for a year and a half. He states that his pain is worse when he is on the treadmill. Patient hasn't had any treatment options. He notices that his pain is on the medial aspect of the knee. He mentions that he was helping his friend build a deck and he was finishing with the stairs and felt a sharp pain in his knee. 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 He was helping a friend build a deck when he felt pain in the knee along the medial side of the joint. He states there are times the knee is ok but does flare up. He suffered a massive heart attack 03/2024 and has to do activities such as walking on the tredmil as part of the recovery which causes pain in the knee. He avoids bending due to pain. [facility] Surgical History Hernia Hx of cardiac cath Family History Mother Heart attack Father No problems noted. Social History Alcohol intake: never Patient Tobacco Use Status: Never used Tobacco Review of Systems Const All systems reviewed & are unremarkable except as noted in HPI and below Physical Exam Const General: cooperative and no acute distress Orientation/consciousness: patient oriented x3 Resp Effort & Inspection: normal respiratory effort and able to speak in complete sentences Cardio Peripheral pulses: Peripheral pulses 2+ throughout Neuro General: patient oriented x3 Extrem Other: Right knee is normal to inspection. There is no direct pain on examination today. He has full range of motion with no ligamentous laxity. Calf supple nontender neurovascularly intact. Results Reviewed Results Reviewed: X-rays of the right knee obtained in the office today and reviewed by me show mild medial compartment arthritis and PF O a Assessment & Plan Assessment & Plan (1) Osteoarthritis of right knee: Code(s): M17.11 - Unilateral primary osteoarthritis, right knee Category: Medical Plan: An order was placed for physical therapy which he will call to make an appointment. I also gave him a home exercise program handout in the office today. If symptoms persist or worsen he can contact our office to discuss steroid injection otherwise she will follow up as needed. Orders: Orders XR knee RT 3V Today M17.11 - Unilateral primary osteoarthritis, right knee PT Evaluation and Treatment Today M17.11 - Unilateral primary osteoarthritis, right knee Coding Level of Care Code Complex visit Add On G2211 Diagnoses Osteoarthritis of right knee M17.11
--- OUTSIDE RECORDS SUMMARY | 2025-04-07 13:37 | XMS_ITS | Encounter Summary ---
Author Organization [facility] Address [address] [place] [address] Phone Care Team Providers Care Science Writer Name Role Phone Lauriealexander Liza Beatris RUBBER INSULATOR Primary Care Provider Merritt Trevino MD Unavailable Gilda Ayoub WRAPPER CASER Primary Care Provider [phone] Gerard Ren MD Primary Care Provider [phone] Gerard Ren MD Unavailable Encounter Details Date Type Department Care Team (Late st Contact Info) Description 06/10/2022 Procedure Pass [facility], Ct Scan - [address] [address] Social History Tobacco Use Types Packs/Day Years [...] high school, GED, job training, learning the Czech language, technical skills, or developing parenting skills)? [...] 07/04/2025 11:00 AM EST Office Visit [facility] Internal Medicine [address] [place] [address] Gerard Ren MD [address] [place] [address] documented as of this encounter Visit Diagnoses Not on filedocumented in this encounter Additional Health Concerns Assessment Noted Time PHQ-2 Depression Total Score: 0 02/09/20 22 9:04 AM EDT documented as of this encounter Care Teams Science Writer Relationship Specialty Start Date End Date Liza Colvin CNP [address] [place] [address] PCP - General Internal Medicine 08/07/20 10/23/22 Gilda Ayoub NP [address] [place] [address] [email or web address] PCP - General Family Medicine 10/24/22 07/09/23 Gerard Ren MD [address] [place] [address] PCP - General Internal Medicine 07/10/23 Merritt Trevino MD [address] [place] [address] Insurance Assigned Provider 08/12/23 08/11/24 Gerard Ren MD [address] [place] [phone] Insurance Assigned Provider 08/11/24 11/16/24 documented as of this encounter Additional Source Comments The information contained in this document represents components of the legal health record. It is not the complete legal health record.[facility]
--- OUTSIDE RECORDS SUMMARY | 2025-04-07 13:37 | XMS_ITS | Encounter Summary ---
Author Organization [facility] Address [address] [place] [address] Phone Care Team Providers Care Electrocardiograph Technician Name Role Phone Lauriealexander Liza Beatris MOLD PULLER Primary Care Provider Merritt Trevino MD Unavailable Gilda yAoub CLOUD PHYSICIST Primary Care Provider [phone] Gerard Ren MD Primary Care Provider [phone] Gerard Ren MD Unavailable Encounter Details Date Type Department Care Team (Late st Contact Info) Description 07/11/2022 Procedure Pass [facility], Ct Scan - [address] [address] Social History Tobacco Use Types Packs/Day Years [...] high school, GED, job training, learning the Khmer language, technical skills, or developing parenting skills)? [...] 07/04/2025 11:00 AM EST Office Visit [facility] Internal Medicine [address] [place] [address] Gerard Ren MD [address] [place] [address] documented as of this encounter Visit Diagnoses Not on filedocumented in this encounter Additional Health Concerns Assessment Noted Time PHQ-2 Depression Total Score: 0 02/09/20 22 9:04 AM EDT documented as of this encounter Care Teams Electrocardiograph Technician Relationship Specialty Start Date End Date Liza Colvin CNP [address] [place] [address] PCP - General Internal Medicine 08/07/20 10/23/22 Gilda Ayoub NP [address] [place] [address] [email or web address] PCP - General Family Medicine 10/24/22 07/09/23 Gerard Ren MD [address] [place] [address] PCP - General Internal Medicine 07/10/23 Merritt Trevino MD [address] [place] [address] Insurance Assigned Provider 08/12/23 08/11/24 Gerard Ren MD [address] [place] [id number] Insurance Assigned Provider 08/11/24 11/16/24 documented as of this encounter Additional Source Comments The information contained in this document represents components of the legal health record. It is not the complete legal health record.[facility]
--- OUTSIDE RECORDS SUMMARY | 2025-04-07 13:38 | XMS_ITS | Encounter Summary ---
Author Organization [facility] Address [address] [place] [address] Phone Care Team Providers Care Cripple Cutter Name Role Phone Merritt Trevino MD Unavailable [phone] Gerard Ren MD Primary Care Provider [phone] Gerard Ren MD Unavailable Encounter Details Date Type Department Care Team (Late st Contact Info) Description 12/27/2023 Procedure Pass [facility], Ct Scan - [facility] [address] [place] [address] Social History Tobacco Use Types Packs/Day Years [...] high school, GED, job training, learning the Icelandic language, technical skills, or developing parenting skills)? [...] 11:00 AM EST Office Visit [facility] Internal Medicine [address] [place] [address] Gerard Ren MD [address] [place] [address] documented as of this encounter Visit Diagnoses Not on filedocumented in this encounter Additional Health Concerns Assessment Noted Time PHQ-2 Depression Total Score: 0 12/27/19 10:50 AM EDT documented as of this encounter Care Teams Cripple Cutter Relationship Specialty Start Date End Date Gerard Ren MD [address] [place] [address] PCP - General Internal Medicine 07/10/23 Merritt Trevino MD [address] [place] [phone] Insurance Assigned Provider 08/12/23 08/11/24 Gerard Ren MD [address] [place] [address] Insurance Assigned Provider 08/11/24 11/16/24 documented as of this encounter Additional Source Comments The information contained in this document represents components of the legal health record. It is not the complete legal health record.[facility]
--- OUTSIDE RECORDS SUMMARY | 2025-04-07 13:38 | XMS_ITS | Encounter Summary ---
Author Organization [facility] Address [address] [place] [address] Phone Care Team Providers Care Maintenance Engineer Name Role Phone Liza Colvin VISUALLY IMPAIRED TEACHER Primary Care Provider Merritt Trevino MD Unavailable [phone] Gilda Ayoub NP Primary Care Provider [phone] Gerard Ren MD Primary Care Provider [phone] Gerard Ren MD Unavailable Encounter Details Date Type Department Care Team (Late st Contact Info) Description 05/30/2022 Ancillary Orders [facility] [address] [place], [place] [phone] Liza Colvin, KEVIN [address] [place], [place] [address] [email or web address] groin pain Social History Tobacco [...] high school, GED, job training, learning the Cypriot language, technical skills, or developing parenting skills)? [...] Description 07/04/2025 11:00 AM EST Office Visit [facility] [address] [place] [address] Gerard Ren MD [address] [place] [address] documented as of this encounter Results * [...] documented as of this encounter Care Teams Maintenance Engineer Relationship Specialty Start Date End Date Liza Colvin CNP [address] [place] [address] PCP - General Internal Medicine 08/07/20 10/23/22 Gilda Ayoub NP [address] [place] [address] PCP - General Family Medicine 10/24/22 07/09/23 Gerard Rne MD [address] [place] [address] [email or web address] PCP - General Internal Medicine 07/10/23 Merritt Trevino MD [address] [place] [address] [email or web address] Insurance Assigned Provider 08/12/23 08/11/24 Gerard Ren MD [address] [place] [address] [email or web address] Insurance Assigned Provider 08/11/24 11/16/24 documented as of this encounter Additional Source Comments The information contained in this document represents components of the legal health record. It is not the complete legal health record.[facility]
--- OUTSIDE RECORDS SUMMARY | 2025-04-07 13:38 | XMS_ITS | Encounter Summary ---
Author Organization [facility] Address [address] [place] [address] Phone Care Team Providers Care Chicken Boner Name Role Phone Lauriealexander Liza Beatris YARN PACKER Primary Care Provider Merritt Trevino MD Unavailable [phone] Gilda Ayoub AGENCY TRAINER Primary Care Provider [phone] Gerard Ren MD Primary Care Provider [phone] Gerard Ren MD Unavailable Encounter Details Date Type Department Care Team (Late st Contact Info) Description 03/15/2022 Procedure Pass [facility], Ct Scan - [address] [address] Social History Tobacco Use Types Packs/Day Years [...] high school, GED, job training, learning the Danish language, technical skills, or developing parenting skills)? [...] 07/04/2025 11:00 AM EST Office Visit [facility] Internal Medicine [address] [place] [address] Gerard Ren MD [address] [place] [address] documented as of this encounter Visit Diagnoses Not on filedocumented in this encounter Additional Health Concerns Assessment Noted Time PHQ-2 Depression Total Score: 0 02/09/20 22 9:04 AM EDT documented as of this encounter Care Teams Chicken Boner Relationship Specialty Start Date End Date Liza Colvin CNP [address] [place] [address] [email or web address] PCP - General Internal Medicine 08/07/20 10/23/22 Gilda Ayoub NP [address] [place] [address] [email or web address] PCP - General Family Medicine 10/24/22 07/09/23 Gerard Ren MD [address] [place] [address] PCP - General Internal Medicine 07/10/23 Merritt Trevino MD [address] [place] [address] Insurance Assigned Provider 08/12/23 08/11/24 Gerard Ren MD [address] [place] [phone] Insurance Assigned Provider 08/11/24 11/16/24 documented as of this encounter Additional Source Comments The information contained in this document represents components of the legal health record. It is not the complete legal health record.[facility]
--- OUTSIDE RECORDS SUMMARY | 2025-04-07 13:38 | XMS_ITS | Clinical Summary ---
Author Organization [facility] Address [address] [place] [address] Phone Care Team Providers Care Crepe Machine Operator Name Role Phone Gerard Ren MD Primary Care Provider [phone] Allergies Active Allergy Reactions Criticality Noted Date [...] patient stated that he had success with [facility] physiatry regarding his shoulder injections so he would like referral back to the concrete form setter who had performed the injections and would [...] but I could set him up with [facility] if he was not [...] Recommend re-evaluation by general surgery. He prefers [facility]. ? Vascular vs lymph swelling at [...] detected on exam. Currently nonurgent, referral to [facility] surgery for elective surgery, patient agrees. Routine general medical exam ination at a [facility] facility 02/08/2022 Assessment & Plan (01/01/2025 5:24 PM EDT): Overall he is doing quite well we can see the patient back in 6 months to follow-up on blood pressure and other metrics. He will go today for Chem-12 screening for hepatitis C and lipid profile PSA. He will continue on Plavix through his branch coordinator until his continue on aspirin. Assessment [...] most recently had lab work through his branch coordinator. Assessment & Plan (09/23/2022 10:28 PM EDT): BP well managed on current medications Assessment & Plan (07/24/2022 10:36 PM EDT): Recommend trial of increased lisinopril to 20 mg daily Encounters Date Type Department Care Team Description 03/03/2025 Orders Only [facility] Internal Medicine [address] [place] [address] Provider, MD Marlyn 01/15/2025 Telephone [facility] Internal [facility] [address] [place], [place] [address] eGrard Ren MD Referral ([facility] Cardiovascular + see media 12/25) from Last 3 Months Immunizations Immunization Administration [...] high school, GED, job training, learning the Yemeni language, technical skills, or developing parenting skills)? [...] Description 07/04/2025 11:00 AM EST Office Visit [facility] Internal Medicine [address] [place] [address] Gerard Ren MD [address] [place] [address] [email or web address] Due Date Last Done Comments [...] Procedure Name Priority Date/Time Associated Diagnosis Comments OUTSIDE [place] IMAGING REPORT ONLY Routine 02/24/2025 8:15 AM EDT HEPATITIS C ANTIBODY, QUALITATIVE Routine 01/01/2025 12:10 PM EDT Need for hepatitis C screening test COMPREHENSIVE METABOLIC PANEL (CMP) Routine 01/01/2025 12:10 PM EDT Benign essential hypertension Mixed hyperlipidemia CT ABDOMEN/PELVIS WITH CONTRAST Routine 07/05/2022 2:06 PM EST Right groin pain COLONOSCOPY FOR RESULT ENTRY ONLY Routine 11/04/2016 from Last 3 Months or Most Recently Relevant to Health Maintenance Results * Outside [place] Imaging Report Only (02/24/2025 8:15 AM EDT) us Historical Provider MD [place] NE ABDOMEN Final Res ult * (ABNORMAL) Comprehensive metabolic panel (01/01/2025 12:10 PM EDT) SODIUM 132(L) 133 - 146 mmol/L [facility] POTASSIUM 4.7 3.3 - 5.1 mmol/L [facility] CHLORIDE 98 96 - 108 mmol/L [facility] CO2 25 21 - 35 mmol/L [facility] BUN 16 6 - 19 mg/dL [facility] CREATININE 1.00 0.5 - 1.5 mg/dL [facility] GLUCOSE 96 70 - 99 mg/dL [facility] ALBUMIN 4.2 3.9 - 4.8 g/dL [facility] TOTAL PROTEIN 7.4 6.5 - 8.0 g/dL [facility] CALCIUM 9.4 8.4 - 10.3 mg/dL [facility] ALKALINE PHOSPHATASE 101 39 - 117 U/L [facility] TOTAL BILIRUBIN 0.6 0.0 - 1.2 mg/dL [facility] AST 31 0 - 37 U/L [facility] ALT 27 0 - 40 U/L [facility] GLOBULIN 3.2 1 - 4.8 g/dL [facility] EGFR 83 >59 mL/min/1.7 3m2 [facility] Comment:Estimated glomerular filtration rate calculated using the CKD-EPI refit equation. ANION GAP 14 10 - 20 mmol/L [facility] Blood 01/01/2025 12:1 0 PM EDT 01/01/2025 6:16 PM EDT Gerard Ren MD LAB BLOOD BKR ORDERABLES Final R esult Performing Organization Address City/[facility]/ZIP Co de Phone Number [address] [address] * Hepatitis C antibody, qualitative (01/01/2025 12:10 PM EDT) HCV NON-REACTIV E NON-REACTI VE [facility] Blood 01/01/2025 12:1 0 PM EDT 01/01/2025 6:16 PM EDT Gerard Ren MD LAB BLOOD BKR ORDERABLES Final R esult Performing Organization Address City/[facility] Co de Phone Number [address] [address] * CT ABDOMEN/PELVIS WITH CONTRAST (07/05/2022 2:06 [...] in the abdomen or pelvis. Liza Colvin CNP [facility] [place] ABD/PELVIS Milagros l Result * COLONOSCOPY FOR RESULT ENTRY ONLY (11/04/2016) Colonoscopy 10 yrs Historical Provider HEALTH MAINTENANCE Final Result from Last 3 Months or Most Recently Relevant to Health Maintenance Insurance MEDICARE PART A & B [facility] BL[place] BLUE REPLACEMENT MEDICARE PART A & B Member Subscriber Plan / Payer (Ef fective 2009-Present) Name:Jayme Pham Member ID:[id number] Relation to Subscriber:Self Name:Jayme Pham Subscriber ID:[id number] Payer ID:[id number] Group ID:Not on file Type:Medicare Address: [employer] [address] [place] [address] [facility] [place] MEDIC[facility] HMO BLUE REPLACEMENT MEDICARE PART A & B Member Subscriber Plan / Payer (Ef fective 2009-Present) Name:Jayme Pham Member ID:[id number] Relation to Subscriber:Self Name:Jayme Pham Subscriber ID:[id number] Payer ID:[id number] Group ID:Not on file Type:Medicare Address: [employer] [address] [place] [address] MEDICARE PART A & B MEDICARE PART A & [place]AC[place] MEDICARE PART A & B Member Subscriber Plan / Payer (Ef fective 2009-Present) Name:Jayme Pham Member ID:[id number] Relation to Subscriber:Self Name:Ankit Jayme Subscriber ID:[id number] Payer ID:[id number] Group ID:Not on file Type:Medicare Address: [employer] [address] [place], [place] [id number] MEDICARE PART A & B Member Subscriber Plan / Payer (Ef fective 2009-Present) Name:Jayme Pham Member ID:[id number] Relation to Subscriber:Self Name:Jayme Pham Subscriber ID:[id number] Payer ID:[id number] Group ID:Not on file Type:Medicare Address: [employer] [address] [place] [address] [place] BLUE REPLACEMENT MEDICARE PART A & B Member Subscriber Plan / Payer (Ef fective 2009-Present) Name:Jayme Pham Member ID:[id number] Relation to Subscriber:Self Name:Jayme Pham Subscriber ID:[id number] Payer ID:[id number] Group ID:Not on file Type:Medicare Address: [employer] [address] [place] [address] [facility] [place] BLUE REPLACEMENT MEDICARE PART A & B Member Subscriber Plan / Payer (Ef fective 2009-Present) Name:Jayme Pham Member ID:[id number] Relation to Subscriber:Self Name:Jayme Pham Subscriber ID:[id number] Payer ID:[id number] Group ID:Not on file Type:Medicare Address: [employer] [address] [place] [address] [facility] [place] BLUE REPLACEMENT Care Teams Crepe Machine Operator Relationship Specialty Start Date End Date Gerard Ren MD [address] [place] [address] PCP - General Internal Medicine 07/10/23 Additional Source Comments The information contained in this document represents components of the legal health record. It is not the complete legal health record.[facility]
--- OUTSIDE RECORDS SUMMARY | 2025-04-07 13:38 | XMS_ITS | Encounter Summary ---
Author Organization [facility] Address [address] [place] [address] Phone Care Team Providers Care Manager Research Name Role Phone Lauriealexander Liza Beatris TECHNICAL DOCUMENT WRITER Primary Care Provider Merritt Trevino MD Unavailable Gilda Ayoub CUSTOMER CONTACT SALES ASSOCIATE Primary Care Provider Gerard Ren MD Primary Care Provider [phone] Gerard Ren MD Unavailable Encounter Details Date Type Department Care Team (Late st Contact Info) Description 07/20/2022 Procedure Pass [facility], Ct Scan - [address] [address] Social History Tobacco Use Types Packs/Day Years [...] high school, GED, job training, learning the Faroese language, technical skills, or developing parenting skills)? [...] 07/04/2025 11:00 AM EST Office Visit [facility] Internal Medicine [address] [place] [address] Gerard Ren MD [address] [place] [address] documented as of this encounter Visit Diagnoses Not on filedocumented in this encounter Additional Health Concerns Assessment Noted Time PHQ-2 Depression Total Score: 0 02/09/20 22 9:04 AM EDT documented as of this encounter Care Teams Manager Research Relationship Specialty Start Date End Date Liza Colvin CNP [address] [place] [address] [email or web address] PCP - General Internal Medicine 08/07/20 10/23/22 Gilda Ayoub NP [address] [place] [address] [email or web address] PCP - General Family Medicine 10/24/22 07/09/23 Gerard Ren MD [address] [place] [address] PCP - General Internal Medicine 07/10/23 Merritt Trevino MD [address] [place] [address] Insurance Assigned Provider 08/12/23 08/11/24 Gerard Ren MD [address] [place] [id number] Insurance Assigned Provider 08/11/24 11/16/24 documented as of this encounter Additional Source Comments The information contained in this document represents components of the legal health record. It is not the complete legal health record.[facility]
--- OUTSIDE RECORDS SUMMARY | 2025-04-07 13:38 | XMS_ITS | Encounter Summary ---
Author Organization [facility] Address [address] [place] [address] Phone Care Team Providers Care Package Drier Name Role Phone Merritt Trevino MD Unavailable [phone] Gilda Ayoub NP Primary Care Provider [phone] Gerard Ren MD Primary Care Provider [phone] Gerard Ren MD Unavailable Encounter Details Date Type Department Care Team (Late st Contact Info) Description 03/23/2023 Procedure Pass [facility], Ct Scan - [address] [address] Social History Tobacco Use Types Packs/Day Years [...] high school, GED, job training, learning the Mohawk language, technical skills, or developing parenting skills)? [...] Description 07/04/2025 11:00 AM EST Office Visit [facility] Internal Medicine [address] [place] [address] Gerard Ren MD [address] [place] [address] [email or web address] documented as of this encounter Visit Diagnoses Not on filedocumented in this encounter Additional Health Concerns Assessment Noted Time PHQ-2 Depression Total Score: 0 03/23/20 23 10:57 AM EST documented as of this encounter Care Teams Package Drier Relationship Specialty Start Date End Date Gilda Ayoub NP [address] [place] [address] PCP - General Family Medicine 10/24/22 07/09/23 Gerard Ren MD [address] [place] [address] PCP - General Internal Medicine 07/10/23 Merritt Trevino MD [address] [place] [address] Insurance Assigned Provider 08/12/23 08/11/24 Gerard Ren MD [address] [place] [address] Insurance Assigned Provider 08/11/24 11/16/24 documented as of this encounter Additional Source Comments The information contained in this document represents components of the legal health record. It is not the complete legal health record.[facility]
--- OUTSIDE RECORDS SUMMARY | 2025-04-07 13:38 | XMS_ITS | Encounter Summary ---
Author Organization [facility] Address [address] [place] [address] Phone Care Team Providers Care Tube Backer Name Role Phone Gerard Ren MD Primary Care Provider [phone] Reason for Referral * Hospital - Outpatient - Closed Specialty Diagnoses / Procedures Referred By Corby colon Referred To Contact Radiology Procedures Outside [place] Imaging Report Only [facility] Internal Medicine [address] [place] [address] Phone: tel: fax: Referral ID Status Reason Start Date Expiration Date Visits Re quested Visits Authorized [id number] Closed 03/03/2025 1 1 Encounter Details Date Type Department Care Team (Late st Contact Info) Description 03/03/2025 Orders Only [facility] Internal Medicine [address] [place] [address] Marlyn Valdez MD [address] [place] [address] Social History Tobacco Use Types Packs/Day Years [...] high school, GED, job training, learning the Vietnamese language, technical skills, or developing parenting skills)? [...] Description 07/04/2025 11:00 AM EST Office Visit [facility] Internal Medicine [address] [place] [address] Gerard Ren MD [address] [place] [address] documented as of this encounter Procedures Procedure Name Priority Date/Time Associated Diagnosis Comments OUTSIDE [place] IMAGING REPORT ONLY Routine 02/24/2025 8:15 AM EDT documented in this encounter Results * Outside [place] Imaging Report Only (02/24/2025 8:15 AM EDT) us Historical Provider MD [place] ABDOMEN Final Res ult documented in this encounter Visit Diagnoses Not on filedocumented in this encounter Additional Health Concerns Assessment Noted Time PHQ-2 Depression Total Score: 0 01/02/20 25 11:03 AM EDT documented as of this encounter Care Teams Tube Backer Relationship Specialty Start Date End Date Gerard Ren MD [address] [place] [address] PCP - General Internal Medicine 07/10/23 documented as of this encounter Additional Source Comments The information contained in this document represents components of the legal health record. It is not the complete legal health record.[facility]
== END 2025-04-07 13:09 | disposition home or self-care (01) ==
LOC: HO.HOS 10:41
PROVIDERS: PCP Internal Medicine; Visit Provider Physician Assistant
DX: M17.11 Unilateral primary osteoarthritis, right knee (principal)
CPT/HCPCS: 99203; G2211

== ENCOUNTER → 2025-04-07 10:44 | Outpatient (BNV) | payer MEDICARE, SELFPAY | PROVIDERS: Visit Provider Radiology Diagnostic Radiology | DX: M17.11 Unilateral primary osteoarthritis, right knee (principal) | CPT/HCPCS: 73562 ==

== ENCOUNTER 2025-04-09 15:36 | Outpatient (AMB) | payer MEDICARE, SELFPAY ==
--- NOTE | 2025-04-09 15:56 | A.OFFVIS_ITS ---
Vital Signs 04/09/25 15:58 Height 5 ft 10 in Weight 177 lb 11.081 oz BMI 25.5 BP 110/64 Blood Pressure Location Lt brachial Position Sitting Pulse 58 Pulse Source Pulse Oximeter Intake Visit Reasons: 3 mth f/up dalia Intake Note: 3 mth f/up/ dalia Aircraft Refueler Required: No Accompanied by: Spouse Allergies aspirin (ASPIRIN) Allergy (Intermediate, Verified 04/07/25 10:53) HIVES diphenhydramine (From Benadryl) Allergy (Verified 04/07/25 10:54) Hives Medication List - Last Reconciled 04/09/25 by Houston Whitaker MD aspirin (Adult Low Dose Aspirin) 81 mg PO DAILY 90 days atorvastatin 80 mg PO BEDTIME 90 days blood pressure monitor (Blood Pressure Kit) As directed clopidogrel 75 mg PO DAILY 90 days lisinopril 10 mg PO DAILY metoprolol succinate ER 25 mg PO DAILY tamsulosin 0.4 mg PO DAILY 90 days HPI Comments Details: 64-year-old gentleman who presented to [facility] in early March with chest pain and had VFib arrest. His EKGs showed inferior STEMI. He was shocked 2 times in the emergency department and then brought into the cardiac veterinary laboratory technician. In the veterinary laboratory technician on the table he had VFib arrest again. He was shocked but this time he did not regain consciousness and was intubated. He underwent cardiac catheterization which showed occluded proximal right coronary artery which was treated with drug-eluting stent. He had aspirin allergy and was treated initially with cangrelor IV and underwent aspirin desensitization in the cardiac care unit and since then has been on aspirin and Plavix. He had a good recovery and is here for clinic visit with us. He is denying any chest pain or shortness of breath. Overall has been doing well. No bleeding concerns. Blood pressure is well controlled. He is currently taking aspirin and Plavix. He is on lisinopril metoprolol and blood pressure is well controlled. 12/25/2024: He is here for follow-up. He is saying that few weeks ago he was working and taking some dirt when he started feeling central pressure-like sensation. He said since then he had few episodes of same sensation mostly after eating and randomly. He continues to exercise and go to cardiac rehabilitation and does not get any significant symptoms there. 04/09/2025: He is here for follow-up. He underwent nuclear perfusion imaging in February 2025 which was normal. He has been doing fine since then 2 and has no symptoms to report. He wants to do dental workup. He has completed 1 year of dual antiplatelet therapy already. [facility] Surgical History Hernia Hx of cardiac cath Family History Mother Heart attack Father No problems noted. Social History Alcohol intake: never Patient Tobacco Use Status: Never used Tobacco Review of Systems Const Denies chills, Denies fatigue, Denies fever(s), Denies frequent falls, Denies weakness, Denies weight gain and Denies weight loss ENT Denies dizziness Card Denies chest pain, Denies leg edema, Denies lightheadedness, Denies palpitations, Denies dyspnea and Denies dyspnea on exertion Resp Denies cough, Denies dyspnea and Denies dyspnea on exertion GI Denies hematochezia Musc Denies abnormal gait, Denies muscle weakness, Denies numbness, Denies radiating pain into limb and Denies tingling Neuro Denies abnormal gait, Denies dizziness, Denies frequent falls, Denies numbness, Denies tingling and Denies weakness Endo Denies fatigue and Denies palpitations Physical Exam Vital Signs: Last Vital Signs Pulse 58 04/09/25 15:58 BP 110/64 04/09/25 15:58 BMI result Body Mass Index 25.5 GENERAL APPEARANCE: in no acute distress, pleasant. NECK: no carotid bruit, no jugular venous distention. SKIN: no suspicious lesions, warm and dry. HEART: no murmurs, regular rate and rhythm. Bradycardic. LUNGS: clear to auscultation bilaterally. ABDOMEN: soft, nontender. EXTREMITIES: no edema. PERIPHERAL PULSES: equal. NEUROLOGIC: No gross deficits, AAO X 3 Assessment & Plan Assessment & Plan (1) Chest pain: Code(s): R07.9 - Chest pain, unspecified Category: Medical Plan Pleasant 64-year-old gentleman who is here for follow-up. 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 He also had dyspnea as the presentation and did not have any chest discomfort. He complained of some chest discomfort recently underwent stress Mibi which was negative. He has been active and goes to gym regularly and has no exertional symptoms to report. Continue same medications. I have advised him to stop the Plavix and continue aspirin from here onwards. Intermediate risk for perioperative complications in case he goes for oral surgery. Thank you for allowing me to participate in the care of your patient. Please feel free to contact me if you have any questions. Coding Level of Care Code Est Pt Level 4 (36115) Diagnoses Chest pain R07.9
[2025-04-09 15:58] VITALS: BP 110/64; PULSE 58; BMI 25.5
--- OUTSIDE RECORDS SUMMARY | 2025-04-09 18:34 | XMS_ITS | Patient Health Record ---
Author Organization [facility] Address [address] [place] [address] Care Team Providers Care Windows Application Administrator Name Role Phone REJI HIRSCH Primary Care Provider Francisco Posada Jr Unavailable Dale CASTILLO, Divya Unavailable Unavailable Reason For Referral No Information Medications Medication SIG (Take, Route, Frequency, Duration) Notes Start Date End Date Status hydroCHLOROthiazide 12.5 MG Tablet 1 tablet in the morning Orally Once a day Active Colyte with Flavor Packs 240 GM Solution Reconstituted As directed Orally Over the specified time.; Duration: 1 day(s) 08/18/2016 Active Flomax 0.4 MG Capsule 1 capsule Orally O nce a day Active Immunizations Vaccine Route Administration Date Status Comme nts Influenza Unknown 06/09/2016 Administered Social History Social History Additional Details Category Social Info Options Details Miscellaneous: Marital status: single Occupation: disabled Problems Problem Type SNOMED Code ICD Code Onset Dates Problem Status W/U Status Risk Notes Problem Colon cancer screening (252436591) Colon cancer screening (Z12.11) Active confirmed Problem Long-term current use of drug therapy (794428792) Long-term current use of high risk medication other than anticoagulant (Z79.899) Active confirmed Plan Of Treatment Future Test Test Name Order Date COLONOSCOPY 08/18/2016 Insurance Providers Payer Name Payer Address Payer Phone Subscriber Number Group Number Insured Name Patient Relationship to Insured Coverage Start Date Coverage End Date MEDICARE OF [place] [address] [place] [address] [id number] GAVINO W[place] Self - patient is the insured Medical (General) History Medical History History ICD Code hypertension discectomy/ back 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
--- OUTSIDE RECORDS SUMMARY | 2025-04-09 18:34 | XMS_ITS | Clinical Summary ---
Author Organization [facility] Address [address] [place] [address] Phone Care Team Providers Care Event Operations Manager Name Role Phone Gerard Ren MD Primary Care Provider [phone] Allergies Active Allergy Reactions Criticality Noted Date [...] patient stated that he had success with [facility] physiatry regarding his shoulder injections so he would like referral back to the auto damage estimator who had performed the injections and would [...] but I could set him up with [facility] if he was not [...] Recommend re-evaluation by general surgery. He prefers [facility]. ? Vascular vs lymph swelling at [...] detected on exam. Currently nonurgent, referral to [facility] surgery for elective surgery, patient agrees. Routine general medical exam ination at a [facility] facility 02/08/2022 Assessment & Plan (01/01/2025 5:24 PM EDT): Overall he is doing quite well we can see the patient back in 6 months to follow-up on blood pressure and other metrics. He will go today for Chem-12 screening for hepatitis C and lipid profile PSA. He will continue on Plavix through his executive team leader until his continue on aspirin. Assessment & [...] most recently had lab work through his executive team leader. Assessment & Plan (09/23/2022 10:28 PM EDT): BP well managed on current medications Assessment & Plan (07/24/2022 10:36 PM EDT): Recommend trial of increased lisinopril to 20 mg daily Encounters Date Type Department Care Team Description 03/03/2025 Orders Only [facility] Internal Medicine [address] [place] [address] Provider, MD Marlyn 01/15/2025 Telephone [facility] Internal Medicine [address] [place], [place] [address] Gerard Ren MD Referral ([facility] Cardiovascular + see media 12/25) from Last [...] high school, GED, job training, learning the Turkmen language, technical skills, or developing parenting skills)? [...] Description 07/04/2025 11:00 AM EST Office Visit [facility] Internal Medicine [address] [place] [address] Gerard Ren MD [address] [place] [address] [email or web address] Due Date Last Done Comments [...] AM EDT) us Historical Provider MD [place] ABDOMEN Final Res ult * (ABNORMAL) Comprehensive metabolic panel (01/01/2025 12:10 PM EDT) SODIUM 132(L) 133 - 146 mmol/L [facility] POTASSIUM 4.7 3.3 - 5.1 mmol/L [facility] CHLORIDE 98 96 - 108 mmol/L [facility] CO2 25 21 - 35 mmol/L [facility] BUN 16 6 - 19 mg/dL [facility] CREATININE 1.00 0.5 - 1.5 mg/dL [facility] GLUCOSE 96 70 - 99 mg/dL [facility] ALBUMIN 4.2 3.9 - 4.8 g/dL [facility] TOTAL PROTEIN 7.4 6.5 - 8.0 g/dL [facility] CALCIUM 9.4 8.4 - 10.3 mg/dL [facility] ALKALINE PHOSPHATASE 101 39 - 117 U/L [facility] TOTAL BILIRUBIN 0.6 0.0 - 1.2 mg/dL [facility] AST 31 0 - 37 U/L [facility] ALT 27 0 - 40 U/L [facility] GLOBULIN 3.2 1 - 4.8 g/dL [facility] EGFR 83 >59 mL/min/1.7 3m2 [facility] Comment:Estimated glomerular filtration rate calculated using the CKD-EPI refit equation. ANION GAP 14 10 - 20 mmol/L [facility] Blood 01/01/2025 12:1 0 PM EDT 01/01/2025 6:16 PM EDT Gerard Ren MD LAB BLOOD BKR ORDERABLES Final R esult Performing Organization Address City/[facility]/ZIP Co de Phone Number [address] [address] * Hepatitis C antibody, qualitative (01/01/2025 12:10 PM EDT) HCV NON-REACTIV E NON-REACTI VE [facility] Blood 01/01/2025 12:1 0 PM EDT 01/01/2025 6:16 PM EDT Gerard Ren MD LAB BLOOD BKR ORDERABLES Final R esult Performing Organization Address City/[facility] Co de Phone Number [address] [address] * CT ABDOMEN/PELVIS WITH CONTRAST (07/05/2022 2:06 [...] the abdomen or pelvis. Liza Colvin CNP [facility] ABD/PELVIS Milagros l Result * COLONOSCOPY FOR RESULT ENTRY ONLY (11/04/2016) Colonoscopy 10 yrs Historical Provider HEALTH MAINTENANCE Final Result from Last 3 Months or Most Recently Relevant to Health Maintenance Insurance MEDICARE PART A & B [facility] [place] BL[place] [facility] [place] [facility] [place] BL[place] MEDICARE PART A & B MEDICARE PART A & B MEDICARE PART A & [place] MEDICARE PART A & B MEDIC[place] PART A & [place] BL[place] MEDICARE PART A & B [facility] [place] BL[place] MEDICARE PART A & B [facility] [employer] [place] BL[place]AC[place] Care Teams Event Operations Manager Relationship Specialty Start Date End Date Gerard Ren MD [address] [place] [address] [email or web address] PCP - General Internal Medicine 07/10/23 Additional Source Comments The information contained in this document represents components of the legal health record. It is not the complete legal health record.[facility]
--- OUTSIDE RECORDS SUMMARY | 2025-04-09 18:34 | XMS_ITS | Encounter Summary ---
Author Organization [facility] Address [address] [place] [address] Phone Care Team Providers Care Shirt Maker Name Role Phone Lauriealexander Liza Beatris BUSINESS ANALYTICS FACULTY MEMBER Primary Care Provider Merritt Trevino MD Unavailable Gilda Ayoub CHARGER TESTER Primary Care Provider [phone] Gerard Ren MD Primary Care Provider [phone] Gerard Ren MD Unavailable Encounter Details Date Type Department Care Team (Late st Contact Info) Description 07/11/2022 Procedure Pass [facility], Ct Scan - [address] [address] Social History Tobacco Use Types Packs/Day Years [...] high school, GED, job training, learning the Greenlandic language, technical skills, or developing parenting skills)? [...] 07/04/2025 11:00 AM EST Office Visit [facility] Internal Medicine [address] [place] [address] Gerard Ren MD [address] [place] [address] documented as of this encounter Visit Diagnoses Not on filedocumented in this encounter Additional Health Concerns Assessment Noted Time PHQ-2 Depression Total Score: 0 02/09/20 22 9:04 AM EDT documented as of this encounter Care Teams Shirt Maker Relationship Specialty Start Date End Date Liza Colvin CNP [address] [place] [address] PCP - General Internal Medicine 08/07/20 10/23/22 Gilda Ayoub NP [address] [place] [address] [email or web address] PCP - General Family Medicine 10/24/22 07/09/23 Gerard Ren MD [address] [place] [address] PCP - General Internal Medicine 07/10/23 Merritt Trevino MD [address] [place] [address] Insurance Assigned Provider 08/12/23 08/11/24 Gerard Ren MD [address] [place] [phone] Insurance Assigned Provider 08/11/24 11/16/24 documented as of this encounter Additional Source Comments The information contained in this document represents components of the legal health record. It is not the complete legal health record.[facility]
--- OUTSIDE RECORDS SUMMARY | 2025-04-09 18:34 | XMS_ITS | Encounter Summary ---
Author Organization [facility] Address [address] [place] [address] Phone Care Team Providers Care Test Puller Name Role Phone Lauriealexander Liza Beatris SHELLFISH FARMING SUPERVISOR Primary Care Provider Merritt Trevino MD Unavailable [phone] Gilda Ayoub COMPUTER GAME PROGRAMMER Primary Care Provider [phone] Gerard Ren MD Primary Care Provider [phone] Gerard Ren MD Unavailable Encounter Details Date Type Department Care Team (Late st Contact Info) Description 06/10/2022 Procedure Pass [facility], Ct Scan - [address] [address] Social History Tobacco Use Types Packs/Day Years [...] high school, GED, job training, learning the Kazakh language, technical skills, or developing parenting skills)? [...] 07/04/2025 11:00 AM EST Office Visit [facility] Internal Medicine [address] [place] [address] Gerard Ren MD [address] [place] [address] documented as of this encounter Visit Diagnoses Not on filedocumented in this encounter Additional Health Concerns Assessment Noted Time PHQ-2 Depression Total Score: 0 02/09/20 22 9:04 AM EDT documented as of this encounter Care Teams Test Puller Relationship Specialty Start Date End Date Liza Colvin CNP [address] [place] [address] PCP - General Internal Medicine 08/07/20 10/23/22 Gilda Ayoub NP [address] [place] [address] [email or web address] PCP - General Family Medicine 10/24/22 07/09/23 Gerard Ren MD [address] [place] [address] PCP - General Internal Medicine 07/10/23 Merritt Trevino MD [address] [place] [address] Insurance Assigned Provider 08/12/23 08/11/24 Gerard Ren MD [address] [place] [phone] Insurance Assigned Provider 08/11/24 11/16/24 documented as of this encounter Additional Source Comments The information contained in this document represents components of the legal health record. It is not the complete legal health record.[facility]
--- OUTSIDE RECORDS SUMMARY | 2025-04-09 18:34 | XMS_ITS | Encounter Summary ---
Author Organization [facility] Address [address] [place] [address] Phone Care Team Providers Care Raw Mill Operator Name Role Phone Merritt Trevino MD Unavailable [phone] Gerard Ren MD Primary Care Provider [phone] Gerard Ren MD Unavailable Encounter Details Date Type Department Care Team (Late st Contact Info) Description 12/27/2023 Procedure Pass [facility], Ct Scan - [facility] [address] [place] [address] Social History Tobacco Use Types Packs/Day Years [...] high school, GED, job training, learning the Tajik language, technical skills, or developing parenting skills)? [...] 11:00 AM EST Office Visit [facility] Internal Medicine [address] [place] [address] Gerard Ren MD [address] [place] [address] documented as of this encounter Visit Diagnoses Not on filedocumented in this encounter Additional Health Concerns Assessment Noted Time PHQ-2 Depression Total Score: 0 12/27/19 10:50 AM EDT documented as of this encounter Care Teams Raw Mill Operator Relationship Specialty Start Date End Date Gerard Ren MD [address] [place] [address] PCP - General Internal Medicine 07/10/23 Merritt Trevino MD [address] [place] [phone] Insurance Assigned Provider 08/12/23 08/11/24 Gerard Ren MD [address] [place] [phone] Insurance Assigned Provider 08/11/24 11/16/24 documented as of this encounter Additional Source Comments The information contained in this document represents components of the legal health record. It is not the complete legal health record.[facility]
--- OUTSIDE RECORDS SUMMARY | 2025-04-09 18:35 | XMS_ITS | Encounter Summary ---
Author Organization [facility] Address [address] [place] [address] Phone Care Team Providers Care Ammunition Specialist Name Role Phone Lauriealexander Liza Beatris MAINTENANCE OF WAY SUPERVISOR Primary Care Provider Merritt Trevino MD Unavailable [phone] Gilda Ayoub SORTER PACKER Primary Care Provider [phone] Gerard Ren MD Primary Care Provider [phone] Gerard Ren MD Unavailable Encounter Details Date Type Department Care Team (Late st Contact Info) Description 03/15/2022 Procedure Pass [facility], Ct Scan - [address] [address] Social History Tobacco Use Types Packs/Day Years [...] 07/04/2025 11:00 AM EST Office Visit [facility] Internal Medicine [address] [place] [address] Gerard Ren MD [address] [place] [address] documented as of this encounter Visit Diagnoses Not on filedocumented in this encounter Additional Health Concerns Assessment Noted Time PHQ-2 Depression Total Score: 0 02/09/20 22 9:04 AM EDT documented as of this encounter Care Teams Ammunition Specialist Relationship Specialty Start Date End Date Liza Colvin CNP [address] [place] [address] [email or web address] PCP - General Internal Medicine 08/07/20 10/23/22 Gilda Ayoub NP [address] [place] [address] [email or web address] PCP - General Family Medicine 10/24/22 07/09/23 Gerard Ren MD [address] [place] [address] PCP - General Internal Medicine 07/10/23 Merritt Trevino MD [address] [place] [address] Insurance Assigned Provider 08/12/23 08/11/24 Gerard Ren MD [address] [place] [phone] Insurance Assigned Provider 08/11/24 11/16/24 documented as of this encounter Additional Source Comments The information contained in this document represents components of the legal health record. It is not the complete legal health record.[facility]
--- OUTSIDE RECORDS SUMMARY | 2025-04-09 18:35 | XMS_ITS | Encounter Summary ---
Author Organization [facility] Address [address] [place] [address] Phone Care Team Providers Care Informatics Coordinator Name Role Phone Liza Colvin CUSTOMER EXPERIENCE ANALYST Primary Care Provider Merritt Trevino MD Unavailable [phone] Gilda Ayoub NP Primary Care Provider Gerard Ren MD Primary Care Provider [phone] Gerard Ren MD Unavailable Encounter Details Date Type Department Care Team (Late st Contact Info) Description 05/30/2022 Ancillary Orders [facility] [place] Internal Medicine [address] [place], [place] [phone] Liza Colvin, KEVIN [address] [place], [place] [id number] [email or web address] Social History Tobacco [...] high school, GED, job training, learning the Russian language, technical skills, or developing parenting skills)? [...] Description 07/04/2025 11:00 AM EST Office Visit [facility] [place] Internal Medicine [address] [place] [address] Gerard Ren MD [address] [place] [address] documented as of this encounter Results * [...] documented as of this encounter Care Teams Informatics Coordinator Relationship Specialty Start Date End Date Liza Colvin CNP [address] [place] [address] PCP - General Internal Medicine 08/07/20 10/23/22 Gilda Ayoub NP [address] [place] [address] PCP - General Family Medicine 10/24/22 07/09/23 Gerard Ren MD [address] [place] [address] PCP - General Internal Medicine 07/10/23 Merritt Trevino MD [address] [place] [phone] [email or web address] Insurance Assigned Provider 08/12/23 08/11/24 Gerard Ren MD [address] [place] [address] [email or web address] Insurance Assigned Provider 08/11/24 11/16/24 documented as of this encounter Additional Source Comments The information contained in this document represents components of the legal health record. It is not the complete legal health record.[facility]
--- OUTSIDE RECORDS SUMMARY | 2025-04-09 18:35 | XMS_ITS | Encounter Summary ---
Author Organization [facility] Address [address] [place] [phone] Phone Care Team Providers Care Masseur/Masseuse Name Role Phone Gerard Ren MD Primary Care Provider [phone] Reason for Referral * Consultation (Within 3 days (urgent)) - Authorized Specialty Diagnoses / Procedures Referred By Corby colon Referred To Contact Diagnoses Acute ischemic heart disease Gerard Ren MD [address] [place], [place] Phone: tel: fax: [email or web address] Houston Whitaker MD [address] [place] [address] Dr Mckeon [address] [place] [address] Phone: tel: Referral ID Status Reason Start Date Expiration Date V isits Requested Visits Authorized [id number] Authorized 12/25/2024 12/25/2025 6 6 Reason for Visit * Reason Onset Date Comments Referral 01/15/2025 [facility] Cardiovascul ar + see media 12/25 Encounter Details Date Type Department Care Team (Late st Contact Info) Description 01/15/2025 Telephone [facility] Internal Medicine [address] [place], [place] [phone] Gerard Ren MD [address] [place], [place] [email or web address] Referral ([facility] Cardiovascular + see media 12/25) Social History [...] high school, GED, job training, learning the Urdu language, technical skills, or developing parenting skills)? [...] Kay Bond - 01/15/2025 10:28 AM EDT [facility] [place] Top Smart Phrases: Referral Request 1. Name of the office where the patient has been seen/requests to be seen: [facility] Cardiovascular 2. Reason for referral/specialist appointment and [...] referral authorization (enter n/a if not available): [id number] 6. Number of visits requested for referral: 6 7. Fax number of specialist office to send referral authorization: [phone] Central Support Travel Rn (Please do not reply to this user; this inbox is not monitored.) Thank you. documented in this encounter Plan of Treatment Upcoming Encounters Date Type Department Care Team (Late st Contact Info) Description 07/04/2025 11:00 AM EST Office Visit [facility] Internal Medicine [address] [place] [address] Gerard Ren MD [address] [place] [phone] [email or web address] Scheduled Referrals Name Type Priority Associated Diagnoses [...] documented as of this encounter Care Teams Masseur/Masseuse Relationship Specialty Start Date End Date Gerard Ren MD [address] [place] [id number] PCP - General Internal Medicine 07/10/23 documented as of this encounter Additional Source Comments The information contained in this document represents components of the legal health record. It is not the complete legal health record.[facility]
--- OUTSIDE RECORDS SUMMARY | 2025-04-09 18:35 | XMS_ITS | Encounter Summary ---
Author Organization [facility] Address [address] [place] [address] Phone Care Team Providers Care Box Office Clerk Name Role Phone Lauriealexander Liza Beatris [employer] SUPERVISOR Primary Care Provider Merritt Trevino MD Unavailable Gilda Ayoub AIR TESTER Primary Care Provider [phone] Gerard Ren MD Primary Care Provider [phone] Gerard Ren MD Unavailable Encounter Details Date Type Department Care Team (Late st Contact Info) Description 07/20/2022 Procedure [facility], Ct Scan - [address] [address] Social History Tobacco Use Types Packs/Day Years [...] high school, GED, job training, learning the Yi language, technical skills, or developing parenting skills)? [...] 07/04/2025 11:00 AM EST Office Visit [facility] Internal Medicine [address] [place] [address] Gerard Ren MD [address] [place] [address] documented as of this encounter Visit Diagnoses Not on filedocumented in this encounter Additional Health Concerns Assessment Noted Time PHQ-2 Depression Total Score: 0 02/09/20 22 9:04 AM EDT documented as of this encounter Care Teams Box Office Clerk Relationship Specialty Start Date End Date Liza Colvin CNP [address] [place] [address] PCP - General Internal Medicine 08/07/20 10/23/22 Gilda Ayoub NP [address] [place] [address] [email or web address] PCP - General Family Medicine 10/24/22 07/09/23 Gerard Ren MD [address] [place] [address] PCP - General Internal Medicine 07/10/23 Merritt Trevino MD [address] [place] [address] Insurance Assigned Provider 08/12/23 08/11/24 Gerard Ren MD [address] [place] [id number] Insurance Assigned Provider 08/11/24 11/16/24 documented as of this encounter Additional Source Comments The information contained in this document represents components of the legal health record. It is not the complete legal health record.[facility]
--- OUTSIDE RECORDS SUMMARY | 2025-04-09 18:35 | XMS_ITS | Encounter Summary ---
Author Organization [facility] Address [address] [place] [address] Phone Care Team Providers Care Flasher Adjuster Name Role Phone Merritt Trevino MD Unavailable [phone] Gilda Ayoub NP Primary Care Provider [phone] Gerard Ren MD Primary Care Provider [phone] Gerard Ren MD Unavailable Encounter Details Date Type Department Care Team (Late st Contact Info) Description 03/23/2023 Procedure Pass [facility], Ct Scan - [address] [address] Social History Tobacco Use Types Packs/Day Years [...] high school, GED, job training, learning the Indonesian language, technical skills, or developing parenting skills)? [...] Description 07/04/2025 11:00 AM EST Office Visit [facility] Internal Medicine [address] [place] [address] Gerard Ren MD [address] [place] [address] [email or web address] documented as of this encounter Visit Diagnoses Not on filedocumented in this encounter Additional Health Concerns Assessment Noted Time PHQ-2 Depression Total Score: 0 03/23/20 23 10:57 AM EST documented as of this encounter Care Teams Flasher Adjuster Relationship Specialty Start Date End Date Gilda Ayoub NP [address] [place] [address] PCP - General Family Medicine 10/24/22 07/09/23 Gerard Ren MD [address] [place] [phone] PCP - General Internal Medicine 07/10/23 Merritt Trevino MD [address] [place] [phone] Insurance Assigned Provider 08/12/23 08/11/24 Gerard Ren MD [address] [place] [phone] Insurance Assigned Provider 08/11/24 11/16/24 documented as of this encounter Additional Source Comments The information contained in this document represents components of the legal health record. It is not the complete legal health record.[facility]
== END 2025-04-09 16:24 | disposition home or self-care (01) ==
LOC: HO.HCS 15:37
PROVIDERS: PCP Internal Medicine; Visit Provider Internal Medicine Cardiovascular Disease
DX: R07.9 Chest pain, unspecified (principal)
CPT/HCPCS: 99214

== ENCOUNTER → 2025-04-09 15:36 | Outpatient (BNVA) | payer MEDICARE, SELFPAY | PROVIDERS: PCP Internal Medicine; Visit Provider Internal Medicine Cardiovascular Disease | DX: R07.89 Other chest pain (principal); I25.2 Old myocardial infarction; Z95.5 Presence of coronary angioplasty implant and graft; Z79.82 Long term (current) use of aspirin | CPT/HCPCS: 99212 ==